=== PATIENT | female | born 1985 | race Caucasian/White ===

== ENCOUNTER 2018-04-14 16:44 | Emergency (ER) | payer OTHER ==
[~2018-04-14] VITALS: Ht 177.8 cm; Wt 86.2 kg
[~2018-04-14 16:44] MED LIST: BENTYL10 MG PO; CLINDAMYCIN HC300 MG PO; FLEXERIL10 MG PO; IBUPROFEN600 MG PO; NAPROXEN500 MG PO; NEURONTIN100 MG PO; NORCO 10-325 T1 EACH PO; NORCO 5-325 TA1 EACH PO; OXYCODONE HCL5 MG PO; PROVENTIL HFA6.7 GM INH; TRAMADOL HCL50 MG PO; VOLTAREN-XR100 MG PO; WELLBUTRIN XL150 MG PO; WELLBUTRIN XL300 MG PO
[2018-04-14] MEDS ORDERED: CYMBALTA30 MG PO (17:01)
[2018-04-14] MEDS ORDERED: KETOROLAC TROME10 MG PO (17:02)
== END 2018-04-14 18:30 | disposition home or self-care (01) ==
LOC: ED 16:44
DX: F17.200 Nicotine dependence, unspecified, uncomplicated (principal); Z88.2 Allergy status to sulfonamides; Z88.1 Allergy status to other antibiotic agents; Z88.8 Allergy status to other drugs, medicaments and biological substances
CPT/HCPCS: 73130; 99283

== ENCOUNTER 2018-08-17 05:27 | Emergency (ER) | payer OTHER ==
[~2018-08-17] VITALS: Ht 177.8 cm; Wt 77.1 kg
[~2018-08-17 05:27] MED LIST changes: +CYMBALTA30 MG PO; +IBUPROFEN800 MG PO; +KETOROLAC TROME10 MG PO; +ULTRAM50 MG PO
--- OUTSIDE RECORDS SUMMARY | 2018-08-17 05:32 | XMS ---
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 - 2 Visits in 30 Days CARE PROVIDERS KATHERINE CROSS Physician Hypoid Gear Tester 06/28/2018-Current PHONE: [phone] AILIN HURST [facility] 03/10/2016-Current PHONE: Unknown [facility] Current PAC PHONE: Unknown PCP_Unattributed Primary Care 03/10/2016-Current PHONE: Unknown Navarro Asher [facility] 03/10/2016-[facility] PHONE: [phone] AILIN HURST Primary Care 03/10/2016-[facility] PHONE: [phone] El has no Care Guidelines for this patient. Mindy VISIT COUNT (12 MO.) 5 JASPER Scott TOTAL 5 NOTE: Visits indicate total known visits. ED/UCC VISIT TRACKING (12 MO.) 08/17/2018 05:28 [facility] [place] TYPE: Emergency COMPLAINT: - SOB/SORE THROAT 08/03/2018 00:02 [facility] [place] TYPE: Emergency COMPLAINT: - R WRIST PAIN/NON INJURY DIAGNOSES: - Major depressive disorder, single episode, unspecified - Unspecified asthma, uncomplicated - Allergy status to other drugs, medicaments and biological substances status - Other custodial (current) drug therapy - Personal history of nicotine dependence - Pain in right wrist - Enthesopathy, unspecified - Allergy status to sulfonamides status 06/27/2018 18:06 [facility] [place] [place] TYPE: Emergency COMPLAINT: - VOMITING 06/02/2018 17:25 [facility] [place] TYPE: Emergency COMPLAINT: - POST OP PROBLEM DIAGNOSES: - 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 - Other acute postprocedural pain - Allergy status to other drugs, medicaments and biological substances status - Allergy status to sulfonamides status - Major depressive disorder, single episode, unspecified - Unspecified abdominal pain - Unspecified abdominal pain 04/14/2018 16:45 [facility] [place] [place] TYPE: Emergency COMPLAINT: - LT HAND INJURY DIAGNOSES: - Activity, walking, marching and hiking - Nicotine dependence, unspecified, uncomplicated - Allergy status to other antibiotic agents status - Allergy status to sulfonamides status - Allergy status to other drugs, medicaments and biological substances status - Pain in left wrist - Fall on same level from slipping, tripping and stumbling without subsequent striking against object, initial encounter - Abrasion of left hand, initial encounter INPATIENT VISIT TRACKING (12 MO.) 06/27/2018 18:[address] [facility] [place] TYPE: Medical Surgical COMPLAINT: - CHOLECYSTITIS DIAGNOSES: - Allergy status to other drugs, medicaments and biological substances status - Other ascites - Major depressive disorder, single episode, unspecified - Hypokalemia - Acute cholecystitis with chronic cholecystitis - Acquired absence of both cervix and uterus - Other custodial (current) drug therapy - Nausea with vomiting, unspecified - Unspecified viral hepatitis C without hepatic coma - Allergy status to analgesic agent status - Chronic viral hepatitis C - Other disorders of bilirubin metabolism - Allergy status to sulfonamides status - Personal history of nicotine dependence - Acute hepatitis C without hepatic coma [email or web address]
== END 2018-08-17 07:03 | disposition home or self-care (01) ==
LOC: ED 05:27
DX: J70.5 Respiratory conditions due to smoke inhalation (principal); F32.9 Major depressive disorder, single episode, unspecified; J45.909 Unspecified asthma, uncomplicated; Z86.19 Personal history of other infectious and parasitic diseases; F17.200 Nicotine dependence, unspecified, uncomplicated; Z90.710 Acquired absence of both cervix and uterus; Z88.0 Allergy status to penicillin; Z88.6 Allergy status to analgesic agent; Z88.8 Allergy status to other drugs, medicaments and biological substances; Z79.899 Other long term (current) drug therapy
CPT/HCPCS: 71046; 82375; 99284-25

== ENCOUNTER 2019-04-04 14:33 | Emergency (ER) | payer OTHER ==
[~2019-04-04] VITALS: Ht 177.8 cm; Wt 80.7 kg
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
== END 2019-04-04 15:01 | disposition home or self-care (01) ==
LOC: ED 14:33
DX: Z48.02 Encounter for removal of sutures (principal)

== ENCOUNTER 2019-04-09 12:03 | Emergency (ER) | payer OTHER ==
[~2019-04-09] VITALS: Ht 177.8 cm; Wt 72.6 kg
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
== END 2019-04-09 14:50 | disposition home or self-care (01) ==
LOC: ED 12:03
DX: S50.02XA Contusion of left elbow, initial encounter (principal); V59.9XXA Occupant (driver) (passenger) of pick-up truck or van injured in unspecified traffic accident, initial encounter; F32.9 Major depressive disorder, single episode, unspecified; F17.200 Nicotine dependence, unspecified, uncomplicated; Z88.2 Allergy status to sulfonamides; Z88.8 Allergy status to other drugs, medicaments and biological substances
CPT/HCPCS: 73080; 99283; 99406

== ENCOUNTER 2020-04-08 14:10 | Emergency (ER) | payer OTHER ==
[~2020-04-08] VITALS: Ht 175.3 cm; Wt 79.4 kg
--- OUTSIDE RECORDS SUMMARY | ~2020-04-08 | XMS | Encounter Summary ---
Demographics + + + | Address | General Delivery | | | [place] [address] | + + + | Home Phone | | + + + | Preferred Language | Unknown | + + + | Marital Status | Single | + + + | Jehovah'S Witness Affiliation | Unknown | + + + | Race | White | + + + | Ethnic Group | Not or | + + + Author + + + | Author | [facility] | | | and [place] | + + + | Organization | [facility] | | | and [place] | + + + | Address | Unknown | + + + | Phone | Unavailable | + + + Support + + +---------+ + | Name | Relationship | Address | Phone | + + +---------+ + | Christine aCbezas | ECON | Unknown | | + + +---------+ + Care Team Providers + +------+ + | Care Tire Changer Name | Role | Phone | + +------+ + | Neal Lutz DO | PCP | | + +------+ + Reason for Visit + + + | Reason | Comments | + + + | Procedure | EMG - BUE / BLE | + + + Encounter Details +--------+ + + + + | Date | Type | Department | Care Team | Description | +--------+ + + + + | 11/09/ | Procedure | [facility] | Alison Aranda | Numbness and | | 2018 | visit | [facility] | [address] | tingling | | | | CL[address] | [address] | | | | | [address], | [place] [address] | | | | | [place] [address] | [phone] | | | | | [phone] | | | +--------+ + + + + Social History + + + +--------+------+ | Tobacco Use | Types | Packs/Day | Years | Date | | | | | Used | | + + + +--------+------+ | Current Every Day | Cigarettes | | | | | Smoker | | | | | + + + +--------+------+ + +---+---+---+ | Smokeless Tobacco: | | | | | Never Used | | | | + +---+---+---+ + + | Comments: 1 pack/week | + + + + +---------+ + | Alcohol Use | Drinks/Week | oz/Week | Comments | + + +---------+ + | No | | | | + + +---------+ + + + + | Sex Assigned at | Date Recorded | | | | + + + | Not on file | | + + + documented as of this encounter Last Filed Vital Signs + + + + + | Vital Sign | Reading | Time Taken | Comments | + + + + + | Blood Pressure | 113/60 | 11/09/2017 12:58 PM | | | | | PDT | | + + + + + | Pulse | 90 | 11/09/2017 12:58 PM | | | | | PDT | | + + + + + | Temperature | - | - | | + + + + + | Respiratory Rate | 18 | 11/09/2017 12:58 PM | | | | | PDT | | + + + + + | Oxygen Saturation | 100% | 11/09/2017 12:58 PM | | | | | PDT | | + + + + + | Inhaled Oxygen | - | - | | | Concentration | | | | + + + + + | Weight | 84.1 kg (185 lb 6.5 | 11/09/2017 12:58 PM | | | | oz) | PDT | | + + + + + | Height | 175 cm (5' 8.9") | 11/09/2017 12:58 PM | | | | | PDT | | + + + + + | Body Mass Index | 27.46 | 11/09/2017 12:58 PM | | | | | PDT | | + + + + + documented in this encounter Progress Notes Alison Aranda MD - 11/09/2017 1:15 PM PDTEMG tolerated well. Results explained to patient. I feel that her extremity numbness and tingling are likely secondary to temporaril y nerve dysfunction from recurrent compression. As for her persistent thoracic pain, she will ask her PCP for a referral to pain management . This may be complex regional pain syndrome. Follow-up at the neurology clinic in 3 months with Evans AIKEN. documented in this encounter Procedure Notes Alison Aranda MD - 11/09/2017 1:15 PM PDTAssociated Order(s): EMGPre-Procedure Diag nose(s): Numbness and tinglingPlease see scanned report. documented in this encounter Plan of Treatment Not on filedocumented as of this encounter Procedures + +--------+ + + + | Procedure Name | Priori | Date/Time | Associated Diagnosis | Comments | | | ty | | | | + +--------+ + + + | EMG | Routin | 11/09/2017 | Numbness and | Results for this | | | e | 1:15 PM | tingling | procedure are in the | | | | PDT | | results section. | + +--------+ + + + | EMG | Routin | 11/09/2017 | Numbness and | Results for this | | | e | 1:15 PM | tingling | procedure are in the | | | | PDT | | results section. | + +--------+ + + + documented in this encounter Results EMG-RAUL/DESIREE (11/09/2017 1:15 PM PDT) + + + | Narrative | Performed At | + + + | Alison Aranda MD 11/09/2017 13:46 Please see scanned | | | report. | | + + + documented in this encounter Visit Diagnoses + + | Diagnosis | + + | Numbness and tingling Disturbance of skin sensation | + + documented in this encounter
--- OUTSIDE RECORDS SUMMARY | ~2020-04-08 | XMS | Encounter Summary ---
Demographics + + + | Address | General Delivery | | | [place] [address] | + + + | Home Phone | | + + + | Preferred Language | Unknown | + + + | Marital Status | Single | + + + | Mosque Affiliation | Unknown | + + + | Race | White | + + + | Ethnic Group | Not or | + + + Author + + + | Author | [facility] | | | and [place] | + + + | Organization | [facility] | | | and [place] | + + + | Address | Unknown | + + + | Phone | Unavailable | + + + Support + + +---------+ + | Name | Relationship | Address | Phone | + + +---------+ + | Christine Cabezas | ECON | Unknown | | + + +---------+ + Care Team Providers + +------+ + | Care Bath Mix Operator Name | Role | Phone | + +------+ + | Teresa Cordova | PCP | | | PA-C | | | + +------+ + Encounter Details +--------+ + + + + | Date | Type | Department | Care Team | Description | +--------+ + + + + | 03/25/ | Imaging | [facility] | Provider, | | | 2019 | Exam | [facility] | [address] | | | | | IMAGING [address] | [address] | | | | | [address] | [place] [address] | | | | | [place] [address] | | | | | | [phone] | | | +--------+ + + + [...] + + documented as of this encounter Plan of Treatment Not on filedocumented as of this encounter Procedures + +--------+ + + + | Procedure Name | Priori | Date/Time | Associated Diagnosis | Comments | | | ty | | | | + +--------+ + + + | CT MAXILLOFACIAL WO | Routin | 03/23/2019 | | Results for this | | CONTRAST | e | 12:00 AM | | procedure are in the | | | | PDT | | results section. | + +--------+ + + + documented in this encounter Results CT Maxillofacial wo Contrast (03/23/2019 12:00 AM PDT) + + | Specimen | + + | | + + + + + | Narrative | Performed At | + + + | External films for comparison only | [facility] | | | | | No results will be in the chart. | | + + + + +---------+ + + | Performing | Address | City/State/Zipcode | Phone Number | | Organization | | | | + +---------+ + + | [facility] | | | | + +---------+ + + documented in this encounter Visit Diagnoses Not on filedocumented in this encounter"
--- OUTSIDE RECORDS SUMMARY | ~2020-04-08 | XMS | Encounter Summary ---
Demographics + + + | Address | General Delivery | | | [place] [address] | + + + | Home Phone | | + + + | Preferred Language | Unknown | + + + | Marital Status | Single | + + + | Yazidism Affiliation | Unknown | + + + | Race | White | + + + | Ethnic Group | Not or | + + + Author + + + | Author | [facility] | | | and [place] | + + + | Organization | [facility] | | | and [...] Team Providers + +------+ + | Care Constitutional Law Professor Name | Role | Phone | + +------+ + PCP | Unavailable | + +------+ + Reason for Visit + +--------+ + | Reason | Onset | Comments | | | Date | | + +--------+ + | Results, Imaging | 06/08/ | | | | 2016 | | + +--------+ + Encounter Details +--------+ + + + + | Date | Type | Department | Care Team | Description | +--------+ + + + + | 06/08/ | Telephone | [facility] | Alison Aranda | Results, Imaging | | 2017 | | [facility] | [address] | | | | | CL[address] | [address] | | | | | [address], | [place] [address] | | | | | [place] [address] | [phone] | | | | | [phone] | | | +--------+ + + + + Social History + +-------+ +--------+------+ | Tobacco Use | Types | Packs/Day | Years | Date | | | | | Used | | + +-------+ +--------+------+ | Never Assessed | | | | | + +-------+ +--------+------+ + + + | Sex Assigned at | Date Recorded | | | | + + + | Not on file | | + + + documented as of this encounter Miscellaneous Notes Telephone Encounter - Alison Aranda MD - 06/08/2017 2:15 PM PDTCalled patient back but again no one answered so I left a message for her to call me back about her MRI resultsE lectronically signed by Alison Aranda MD at 06/08/2017 2:19 PM PDTTelephone Encounter - Ines Gutierrez - 06/08/2017 11:30 AM PDTPatient is asking for Dr. Aranda to call her destin k to go over her results. She states she missed a call yesterday regarding this. The best nu mber to reach her today is [phone] Thank you, InesElectronkrystal signed by Ines Gutierrez at 06/08/2017 11:33 AM PDTdocumented in this encounter Plan of Treatment Not on filedocumented as of this encounter Visit Diagnoses Not on filedocumented in this encounter"
--- OUTSIDE RECORDS SUMMARY | ~2020-04-08 | XMS | Encounter Summary ---
Demographics + + + | Address | General Delivery | | | [place] [address] | + + + | Home Phone | | + + + | Preferred Language | Unknown | + + + | Marital Status | Single | + + + | Rastafarian Affiliation | Unknown | + + + | Race | White | + + + | Ethnic Group | Not or | + + + Author + + + | Author | [facility] | | | and [place] | + + + | Organization | [facility] | | | and [...] Team Providers + +------+ + | Care Dog Beautician Name | Role | Phone | + +------+ + | Neal Lutz DO | PCP | | + +------+ + Reason for Visit + +--------+ + | Reason | Onset | Comments | | | Date | | + +--------+ + | Medication Related | 01/29/ | | | | 2017 | | + +--------+ + Encounter Details +--------+ + + + + | Date | Type | Department | Care Team | Description | +--------+ + + + + | 01/29/ | Telephone | [facility] | Shabbir, | Medication Related | | 2018 | | [facility] | Vitakennethneil, VISITOR INFORMATION ASSISTANT [address] | | | | | [address] | [address] [facility] [place], | | | | | [address], | [place] [address] | | | | | [place] [address] | [phone] | | | | | [phone] | | | +--------+ + + + [...] this encounter Miscellaneous Notes Telephone Encounter - Bree Carson CC CMA - 01/29/2018 4:39 PM PDTCalled pt confirm ed pharmacy, refaxed the script per patient. Bree Carson elephone Encounter - Payal Elise - 01/29/2018 4:32 PM PDTPt was in last wed and talked with Jerry and was supposed to have a prescription of Lyrica. She stated the pharmacy has not received it please advise.Nikolai rice signed by Payal Elise at 01/29/2018 4:35 PM PDTdocumented in this encounter Plan of Treatment Not on filedocumented as of this encounter Visit Diagnoses Not on filedocumented in this encounter"
--- OUTSIDE RECORDS SUMMARY | ~2020-04-08 | XMS | Encounter Summary ---
Demographics + + + | Address | General Delivery | | | [place] [address] | + + + | Home Phone | | + + + | Preferred Language | Unknown | + + + | Marital Status | Single | + + + | Restorationism Affiliation | Unknown | + + + | Race | White | + + + | Ethnic Group | Not or | + + + Author + + + | Author | [facility] | | | and [place] | + + + | Organization | [facility] | | | and [...] Team Providers + +------+ + | Care Flotation Operator Name | Role | Phone | + +------+ + | Teresa Cordova | PCP | | | PA-C | | | + +------+ + Encounter Details +--------+ + + + + | Date | Type | Department | Care Team | Description | +--------+ + + + + | 03/23/ | Ophth Exam | [facility] | Vincenzo Miller, | | | 2018 | | MED CTR PROVIDER | [address] | | | | | SURGICAL [address] | [place] [address] | | | | | [place], | [address] | | | | | [place] [address] | | | | | | [phone] | | | +--------+ + + + [...]
--- OUTSIDE RECORDS SUMMARY | ~2020-04-08 | XMS | Encounter Summary ---
Demographics + + + | Address | [address] | | | [place] [address] | + + + | Home Phone | | + + + | Preferred Language | Unknown | + + + | Marital Status | Single | + + + | Judaism Affiliation | DEC | + + + | Race | White | + + + | Ethnic Group | Not or | + + + Author + + + | Author | [facility] | + + + | Organization | [facility] | + + + | Address | Unknown | + + + | Phone | Unavailable | + + + Support + + +---------+ + | Name | Relationship | Address | Phone | + + +---------+ + | Jovan Cabezas | ECON | Unknown | | + + +---------+ + Care Team Providers + +------+ + | Care Electric Wheelchair Repairer Name | Role | Phone | + +------+ + | Neal Lutz DO | PCP | | + +------+ + Encounter Details +--------+ + + + + | Date | Type | Department | Care Team | Description | +--------+ + + + + | 06/01/ | Document-Sc | Dermatology at | Carolina Patel, | | | 2015 | anned | [facility] | ,PhD 1934 | | | | | Clinic [address] | [address] [place], [place] | | | | | [place], [place] | [address] | | | | | [address] | [phone] | | | | | [phone] | | | +--------+ + + + + Social History + +-------+ +--------+------+ | Tobacco Use | Types | Packs/Day | Years | Date | | | | | Used | | + +-------+ +--------+------+ | Former Smoker | | | | | + +-------+ +--------+------+ + + +---------+ + | Alcohol Use | Drinks/Week | oz/Week | Comments | + + +---------+ + | Not Asked | 0 Standard drinks | 0.0 | | | | or equivalent | | | + + +---------+ + + + + | Sex Assigned at | Date Recorded | | | | + + + | Not on file | | + + + documented as of this encounter Plan of Treatment Not on filedocumented as of this encounter Visit Diagnoses Not on filedocumented in this encounter"
--- OUTSIDE RECORDS SUMMARY | ~2020-04-08 | XMS | Encounter Summary ---
Demographics + + + | Address | General Delivery | | | [place] [address] | + + + | Home Phone | | + + + | Preferred Language | Unknown | + + + | Marital Status | Single | + + + | Pentecostal Affiliation | Unknown | + + + | Race | White | + + + | Ethnic Group | Not or | + + + Author + + + | Author | [facility] | | | and [place] | + + + | Organization | [facility] | | | [...] Team Providers + +------+ + | Care Optician Apprentice Name | Role | Phone | + +------+ + PCP | Unavailable | + +------+ + Encounter Details +--------+ + + + + | Date | Type | Department | Care Team | Description | +--------+ + + + + | 02/22/ | Hospital | [facility] | Shaun Abel | | | 2017 | Encounter | [facility] | [address] | | | | | CL[address] | [address] [place], [place] | | | | | [address] [place], | [address] | | | | | [place] [address] | | | | | | [phone] | | | +--------+ + + + [...]
--- OUTSIDE RECORDS SUMMARY | ~2020-04-08 | XMS | Encounter Summary ---
Demographics + + + | Address | General Delivery | | | [place] [address] | + + + | Home Phone | | + + + | Preferred Language | Unknown | + + + | Marital Status | Single | + + + | Caodaism Affiliation | Unknown | + + + | Race | White | + + + | Ethnic Group | Not or | + + + Author + + + | Author | [facility] | | | and [place] | + + + | Organization | [facility] | | | and [...] Team Providers + +------+ + | Care Cosmetologist Name | Role | Phone | + +------+ + | Neal Lutz DO | PCP | | + +------+ + Reason for Visit + + + | Reason | Comments | + + + | Follow-up | Throracic pain | + + + Encounter Details +--------+---------+ + + + | Date | Type | Department | Care Team | Description | +--------+---------+ + + + | 01/23/ | Office | [facility] | Shabbir, | Chronic left-sided | | 2018 | Visit | [facility] | Jerry, [address] | thoracic back pain | | | | CLIN[address] | [address] [place], | (Primary Dx); | | | | [address] [place], | [place] [address] | Numbness and | | | | [place] [address] | [phone] | tingling | | | | [phone] | | | +--------+---------+ + + + Social History + + [...] this encounter Last Filed Vital Signs + +---------+ + + | Vital Sign | Reading | Time Taken | Comments | + +---------+ + + | Blood Pressure | 110/72 | 01/23/2018 8:55 AM | | | | | PDT | | + +---------+ + + | Pulse | 89 | 01/23/2018 8:55 AM | | | | | PDT | | + +---------+ + + | Temperature | - | - | | + +---------+ + + | Respiratory Rate | 16 | 01/23/2018 8:55 AM | | | | | PDT | | + +---------+ + + | Oxygen Saturation | 99% | 01/23/2018 8:55 AM | | | | | PDT | | + +---------+ + + | Inhaled Oxygen | - | - | | | Concentration | | | | + +---------+ + + | Weight | - | - | | + +---------+ + + | Height | - | - | | + +---------+ + + | Body Mass Index | - | - | | + +---------+ + + documented in this encounter Patient Instructions Patient Instructions Jerry Shea, ATTILA - 01/23/2018 9:00 AM PDT Pregabalin capsules Brand Name: Brandi What is this medicine? PREGABALIN (pre VIMAL a [place]) is used to treat nerve pain from diabetes, shingles, spinal cord injury, and fibromyalgia. It is also used to control seizures in epilepsy. How should I use this medicine? Take this medicine by mouth with a glass of water. Follow the directions on the prescriptio n label. You can take this medicine with or without food. Take your doses at regular interva ls. Do not take your medicine more often than directed. Do not stop taking except on your do ctor's advice. A special MedGuide will be given to you by the pharmacist with each prescription and refill . Be sure to read this information carefully each time. Talk to your ship's pilot regarding the use of this medicine in children. Special care may be needed. What side effects may I notice from receiving this medicine? Side effects that you should report to your doctor or health landcare officer as soon as p ossible: allergic reactions like skin rash, itching or hives, swelling of the face, lips, or tong ue breathing problems changes in vision chest pain confusion jerking or unusual movements of any part of your body loss of memory muscle pain, tenderness, or weakness suicidal thoughts or other mood changes swelling of the ankles, feet, hands unusual bruising or bleeding Side effects that usually do not require medical attention (report to your doctor or health landcare officer if they continue or are bothersome): dizziness drowsiness dry mouth headache nausea tremors trouble sleeping weight gain What may interact with this medicine? alcohol certain medicines for blood pressure like captopril, enalapril, or lisinopril certain medicines for diabetes, like pioglitazone or rosiglitazone certain medicines for anxiety or sleep narcotic medicines for pain What if I miss a dose? If you miss a dose, take it as soon as you can. If it is almost time for your next dose, ta ke only that dose. Do not take double or extra doses. Where should I keep my medicine? Keep out of the reach of children. This medicine can be abused. Keep your medicine in a saf e place to protect it from theft. Do not share this medicine with anyone. Selling or giving away this medicine is dangerous and against the law. This medicine may cause accidental overdose and if it taken by other adults, children , or pets. Mix any unused medicine with a substance like cat litter or coffee grounds. Then throw the medicine away in a sealed container like a sealed bag or a coffee can with a lid. Do not use the medicine after the expiration date. Store at room temperature between 15 and 30 degrees C (59 and 86 degrees F). What should I tell my health care provider before I take this medicine? They need to know if you have any of these conditions: bleeding problems heart disease, including heart failure history of alcohol or drug abuse kidney disease suicidal thoughts, plans, or attempt; a previous suicide attempt by you or a family memb er an unusual or allergic reaction to pregabalin, gabapentin, other medicines, foods, dyes, or preservatives or trying to get or trying to conceive with your partner breast-feeding What should I watch for while using this medicine? Tell your doctor or healthcare professional if your symptoms do not start to get better or if they get worse. Visit your doctor or health landcare officer for regular checks on your progress. Do not stop taking except on your doctor's advice. You may develop a severe reacti on. Your doctor will tell you how much medicine to take. Wear a medical identification bracelet or chain if you are taking this medicine for seizure s, and carry a card that describes your disease and details of your medicine and dosage time s. You may get drowsy or dizzy. Do not drive, use machinery, or do anything that needs mental alertness until you know how this medicine affects you. Do not stand or sit up quickly, clarence cially if you are an older patient. This reduces the risk of dizzy or fainting spells. Alcoh ol may interfere with the effect of this medicine. Avoid alcoholic drinks. If you have a heart condition, like congestive heart failure, and notice that you are retai boo water and have swelling in your hands or feet, contact your health care provider chris benitez. The use of this medicine may increase the chance of suicidal thoughts or actions. Pay speci al attention to how you are responding while on this medicine. Any worsening of mood, or tho ughts of suicide or dying should be reported to your health landcare officer right away. This medicine has caused reduced sperm counts in some men. This may interfere with the abil ity to father a child. You should talk to your doctor or health landcare officer if you are concerned about your fertility. Women who become while using this medicine for seizures may enroll in the [facility] Antiepileptic Drug Registry by calling . This registry [facility] information about the safety of antiepileptic drug use during . NOTE:This sheet is a summary. It may not cover all possible information. If you have questi ons about this medicine, talk to your doctor, pharmacist, or health care provider. Copyright 2017 [employer] documented in this encounter Progress Notes Jerry Shea FNP - 01/23/2018 9:00 AM PDT Patient: Becky Peña Medical Record: [id number] Date of Services: 01/23/2018 Referring Doctor: Neal Lutz DO Chief Complaint: Chronic thoracic spine pain, complex regional pain syndrome, numbness and tingling History of Present Illness: The patient presents to the Neurology Clinic today for follow u p. The patient presents to the neurology clinic today for follow-up for her chronic left-sided thoracic pain possibly due to complex regional pain syndrome. The patient reports that her pain started after the removal of 2 abscesses in her left axilla. The area that she descri bes extends from the base of her skull down to her low back and across to her axilla. With an area of intense pain over the left scapula near the axillary area. She reports that her pain today as a 3 out of 10. The pain is intermittent and occurs about 4 times per day last ing 5-10 minutes for each episode. She reports that when this happens the pain is about an 8 out of 10. She had an MRI of the thoracic spine done January 11, 2017 which showed some mild degenerative changes of the thoracic spine, but does not explain her symptoms. She had an E MG done November 09, 2017 which showed no signs of neuropathy or radiculopathy. She had an MRI of the brain done June 06, 2017 which showed no acute processes and was essentially norm al. The patient also endorses intermittent left-sided numbness and tingling she reports ramiro t it affects the entire left side of her body but happens when she is either sitting down, o r when she is leaning over and put pressure on her left elbow. The patient has tried gabape ntin and Topamax but these medications were discontinued due to side effects. She is also u nable to take zonisamide due to a sulfa allergy. She had previously started taking Cymbalta 60 mg daily. She reports moderate relief from h er symptoms with this medication. However, she does believe that her pain has been worsenin g over the past several months. Her PCP left [place] and she has not reestablished with a new primary care provider. Therefore, a referral to a pain specialist has not yet been mad e. Patient Active Problem List Diagnosis Date Noted Numbness and tingling 10/18/2017 Chronic left-sided thoracic back pain 07/16/2017 Past Surgical History: Procedure Laterality Date SECTION TUBAL LIGATION Allergies Allergen Reactions Acetaminophen Other (See Comments) Sleepy Gabapentin Other (See Comments) nightmares Sulfa Antibiotics Rash Current Medications: clindamycin DULoxetine pregabalin VENTOLIN HFA Review of Symptoms: CONSTITUTIONAL: No weight loss, fever, chills, weakness or fatigue. HEENT: Eyes: No visual loss, blurred vision, double vision or yellow sclerae. Ears, Nose, Throat: No hearing loss, sneezing, congestion, runny nose or sore throat. SKIN: No rash or itching. CARDIOVASCULAR: No chest pain, chest pressure or chest discomfort. No palpitations or edema . RESPIRATORY: No shortness of breath, cough or sputum. GASTROINTESTINAL: No anorexia, nausea, vomiting or diarrhea. No abdominal pain or blood. GENITOURINARY: No burning on urination. NEUROLOGICAL: No headache, dizziness, syncope, paralysis, ataxia. No change in bowel or live dder control. + Numbness and tingling of left side MUSCULOSKELETAL: No muscle, joint pain or stiffness. + Back pain PSYCHIATRIC: No depression or anxiety. Neurological Examination: Vitals: 01/23/18 0855 BP: 110/72 Pulse: 89 Resp: 16 PainSc: 3 PainLoc: Back Mental status: The patient is alert, attentive, and oriented. Speech is clear and fluent with good repetit ion, comprehension, and naming. Cranial nerves: CN II: Visual loera are full to confrontation. Fundoscopic exam is normal with sharp discs and no vascular changes. Pupils are 4 mm and briskly reactive to light with accomodation. CN III, IV, : Gaze in conjugate. No blurred or double vision. No visual field cuts. EOM intact. CN V: Facial sensation is intact. CN VII: Face is symmetric with normal eye closure and smile. CN VII: Hearing is normal to rubbing fingers CN IX, X: Palate elevates symmetrically. Phonation is normal. CN XI: Head turning and shoulder shrug are intact CN XII: Tongue is midline with normal movements and no atrophy. Motor: There is no pronator drift of out-stretched arms. Muscle bulk and tone are normal. Strength is 5/5 bilaterally. Reflexes: Reflexes are 2+ and symmetric at the biceps, triceps, knees, and ankles. Sensory: Light touch, pinprick, position sense, and vibration sense are intact in fingers and toes. Coordination: Rapid alternating movements and fine finger movements are intact. There is no dysmetria on iwekdx-jd-tyll and wets-tvkp-ymum. There are no abnormal or extraneous movements. Romberg is absent. Gait/Stance: Posture is normal. Gait is steady with normal steps, base, arm swing, and turning. Heel and toe walking with mild difficulty. Clinical Impression: ICD-10-CM ICD-9-CM 1. Chronic left-sided thoracic back pain M54.6 724.1 pregabalin (LYRICA) 25 mg capsule G89.29 338.29 2. Numbness and tingling R20.0 782.0 pregabalin (LYRICA) 25 mg capsule R20.2 Plan: Chronic left-sided thoracic back pain: The patient is unable to take gabapentin and Topama x due to side effects, and she is unable to take zonisamide due to a sulfa allergy. The pat ient should try taking low-dose Lyrica to help with her pain and burning sensations. If terrence s medication is effective for her consider dose escalation in the future. I strongly encour aged the patient to reestablish care with a primary care provider so that she can get a refe rral to a pain specialist. The patient is agreeable to this plan of care. Plan to follow up with me in 4 months ATTILA Jeff documented in terrence s encounter Plan of Treatment Not on filedocumented as of this encounter Visit Diagnoses + + | Diagnosis | + + | Chronic left-sided thoracic back pain - Primary | + + | Numbness and tingling Disturbance of skin sensation | + + documented in this encounter"
--- OUTSIDE RECORDS SUMMARY | ~2020-04-08 | XMS | Encounter Summary ---
Demographics + + + | Address | General Delivery | | | [place] [address] | + + + | Home Phone | | + + + | Preferred Language | Unknown | + + + | Marital Status | Single | + + + | Episcopal Affiliation | Unknown | + + + | Race | White | + + + | Ethnic Group | Not or | + + + Author + + + | Author | [facility] | | | and [place] | + + + | Organization | [facility] | | [...] Team Providers + +------+ + | Care Ent Consultant Name | Role | Phone | + +------+ + | Neal Lutz DO | PCP | | + +------+ + Encounter Details +--------+ + + + + | Date | Type | Department | Care Team | Description | +--------+ + + + + | 02/11/ | Documentati | [facility] | [place] [place] | | | 2018 | on | H[facility] | [facility] | | | | | CLINIC [address] | | | | | | [address] [place], | | | | | | [place] [address] | | | | | | [phone] | | | +--------+ + + + [...] + + documented as of this encounter Progress Bree Hansen CC CMA - 02/11/2018 8:04 AM PDTPa done for Lyrica 25 Mg 01/31/18 and r esubmitted , was approved through 02/07/2018 through 02/07/19 per [facility]. Copy sent to ne an pt. Notified. Bree [place] Electronically signed by CLIFF Blanc CMA at 8:10 AM PDTdocumented in this encounter Plan of Treatment Not on filedocumented as of this encounter Visit Diagnoses Not on filedocumented in this encounter"
--- OUTSIDE RECORDS SUMMARY | ~2020-04-08 | XMS | Encounter Summary ---
Demographics + + + | Address | General Delivery | | | [place] [address] | + + + | Home Phone | | + + + | Preferred Language | Unknown | + + + | Marital Status | Single | + + + | Episcopalian Affiliation | Unknown | + + + | Race | White | + + + | Ethnic Group | Not or | + + + Author + + + | Author | [facility] | | | and [place] | + + + | Organization | [facility] | | | [...] Team Providers + +------+ + | Care Packing Supervisor Name | Role | Phone | + +------+ + | Neal Lutz DO | PCP | | + +------+ + Reason for Visit +--------+--------+ + | Reason | Onset | Comments | | | Date | | +--------+--------+ + | Other | 01/23/ | | | | 2018 | | +--------+--------+ + Encounter Details +--------+ + + + + | Date | Type | Department | Care Team | Description | +--------+ + + + + | 01/23/ | Telephone | [facility] | Jan Peacock MD | Other | | 2018 | | HOSPITAL [facility] | [address] | | | | | CLIN[address] | [place], [place] | | | | | [address] [place], | [address] | | | | | [place] [address] | | | | | | [phone] | | | +--------+ + + + [...] this encounter Miscellaneous Notes Telephone Encounter - Janey Pierce CC CMA - 01/23/2018 2:49 PM PDTSpoke to patient wh o understood that the MRI was accidentally ordered, but she does not need it because she had one done in May. P M PDTTelephone Encounter - Payal Elise - 01/23/2018 2:05 PM PDTPt stated at her apt she was told there were MRI orders for her. She stated she had one done in May. Does she nee d another please advise [phone] signed by Payal Elise at 8 2:07 PM PDTdocumented in this encounter Plan of Treatment Not on filedocumented as of this encounter Visit Diagnoses Not on filedocumented in this encounter"
--- OUTSIDE RECORDS SUMMARY | ~2020-04-08 | XMS | Encounter Summary ---
Demographics + + + | Address | [address] | | | [place] [address] | + + + | Home Phone | | + + + | Preferred Language | Unknown | + + + | Marital Status | Single | + + + | Caodaism Affiliation | DEC | + + + | Race | White | + + + | Ethnic Group | Not or | + + + Author + + + | Author | [facility] | + + + | Organization | [facility] | + + + | Address | Unknown | + + + | Phone | Unavailable | + + + Support + + +---------+ + | Name | Relationship | Address | Phone | + + +---------+ + | Jovan Cabezas | ECON | Unknown | | + + +---------+ + Care Team Providers + +------+ + | Care Lean Manufacturing Coordinator Name | Role | Phone | + +------+ + | BolivarNeal DO | PCP | | + +------+ + Reason for Visit + + + | Reason | Comments | + + + | Skin Lesion | Pt here today for abcesses all over her body since had surgery to | | | remove an abcess in bilateral armpits november 11. SHe states | | | they don't get as big as they used to. She uses hibiclens and | | | heat compresses. Pt is allergic to sulfates. | + + + Consultation (Routine) +--------+ + + + + + | Status | Reason | Specialty | Diagnoses / | Referred By | Referred To | | | | | Procedures | Contact | Contact | +--------+ + + + + + | Closed | Specialty | Dermatology | Diagnoses | Bolivar, | Amanda, | | | Services | | Cutaneous | DO Neal | Carolina Negrete, | | | Required | | abscess of | | ,PhD 1934 | | | | | limb, | [place], | E | | | | | unspecified | [place] | [place], | | | | | | [address] | [place] [address] | | | | | | Phone: | Phone: | | | | | | [phone] | [phone] | | | | | | Fax: | Fax: | | | | | | [phone] | [phone] | +--------+ + + + + + Encounter Details +--------+---------+ + + + | Date | Type | Department | Care Team | Description | +--------+---------+ + + + | 03/10/ | Office | Dermatology at | Carolina Patel, | Hidradenitis | | 2016 | Visit | [facility] | ,PhD 1934 | (Primary Dx) | | | | Clinic 1934 | [address] [place], [place] | | | | | [place], [place] | [address] | | | | | [address] | [phone] | | | | | [phone] | | | +--------+---------+ + + + Social History + +-------+ [...] + + + | Blood Pressure | - | - | | + + + + + | Pulse | - | - | | + + + + + | Temperature | - | - | | + + + + + | Respiratory Rate | - | - | | + + + + + | Oxygen Saturation | - | - | | + + + + + | Inhaled Oxygen | - | - | | | Concentration | | | | + + + + + | Weight | 86.3 kg (190 lb 3.2 | 03/10/2016 4:34 PM | | | | oz) | PDT | | + + + + + | Height | 170.2 cm (5' 7") | 03/10/2016 4:34 PM | | | | | PDT | | + + + + + | Body Mass Index | 29.79 | 03/10/2016 4:34 PM | | | | | PDT | | + + + + + documented in this encounter Patient Instructions Patient Instructions Becky Townsend MA - 03/10/2016 4:51 PM PDTSUNSCREEN APPLICATION AN D UV PROTECTION ? Exposure to ultraviolet radiation is the leading cause of premature aging, and skin cance rs including melanoma. ? The [place] [employer] (AAD) recommends you wear a wide-brimmed hat, sun gla sses and sun protective clothing. If you must be in the sun, it is recommended to use a Bro ad spectrum sunscreen (blocking both UVA and UVB) with a sun protection factor (SPF) of 30+ (even on cloudy days) and reapply every two hours, or after swimming or heavy perspiration. ? Sunscreens should be applied generously and evenly. One fluid ounce (or the equivalent o f a full shot glass) is the approximate amount of sunscreen required for each person each ti me sunscreen is applied. ? Sunscreens have an expiration date and once that date is reached, they may lose effective ness and should be discarded. ? Sunscreen is also important for blocking reflected UVR (Ultraviolet Radiation). Sand, con crete, snow, water, and other surfaces reflect UVR which has the same effect to your skin as direct sunlight. THE "ABCDE" RULE AND MELANOMA DETECTION Asymmetry - compare one half of the growth to the other half to determine if the halves are equal in size and appearance. Border - If the mole's border is irregular, notched, scalloped, or indistinct, it should be checked by a doctor. Color - Variation of color (e.g., more than one color or shade) within a mole is a suspicio us finding. Diameter - Any mole that has a diameter larger than a pencil's eraser should be checked by a doctor. Evolving - If a mole is changing in size, shape, color, elevation, surface texture or becom es itchy or painful, it should be checked by a doctor. Additional sunscreen and melanoma information is available at the following websites: http://www.[facility]/xd/health/services/dermatology/for-patients/health_info.cfm - [facility] Derm atology http://www.aad.org/public/sun/smart.html - AAD Website documented in this encounter Progress Notes Becky Townsend MA - 03/10/2016 4:51 PM PDT. Carolina Stevenson MD ,PhD - 03/10/2016 4:51 PM PDT DERMATOLOGY NEW PATIENT VISIT CHIEF COMPLAINT: Skin Lesion PCP: Neal Lutz DO HISTORY OF PRESENT ILLNESS: Becky Peña is a 30 y.o. female who presents for evaluation of Skin Lesion She is a n ew patient to dermatology, here for evaluation of axillary abscesses/cysts. She has had 3 o f these excised. She states that she continues to get the occasional new cystic papule on h er lower abdomen, or under her arms. She is also getting some irritation on the back of her scalp. She has no family history of a similar condition. She has experienced some large w eight loss and weight gain. She has been previously treated with oral clindamycin, topical Hibiclens which she continues to use. She has also previously taken doxycycline which she d id not tolerate. She describes a pins and needles feeling in her shoulder after her surgery. The patient's dermatology intake form was reviewed, signed, and dated. Her relevant PMH, F H, and includes: PAST MEDICAL HISTORY: No past medical history on file. PAST SURGICAL HISTORY: No past surgical history on file. FAMILY HISTORY: Family History: no one similarly affected SOCIAL HISTORY: Patient reports that she has quit smoking. She does not have any smokeless tobacco history on file. MEDICATIONS: Current Medication List Not on File ALLERGIES: -- Sulfa (Sulfonamide Antibiotics) -- Rash REVIEW OF SYSTEMS: Please see HPI and PMH. In addition, she denies fever, chills, sweats, weight loss or loss of appetite, and has no further skin complaints. PHYSICAL EXAMINATION: Ht 1.702 m (5' 7") | Wt 86.274 kg (190 lb 3.2 oz) | BMI 29.78 kg/(m^2) Well-developed, well-nourished female in no acute distress. Awake, alert and oriented. Pl easant and cooperative mood. A skin examination was performed including the scalp, face, eyelids, ears, lips, neck, ches t, back, abdomen, buttocks, bilateral arms and legs, bilateral hands and feet, and nails. F indings were within normal limits except for the following: --3 linear pink well healed excision sites in the axilla --a few small follicular pink papules under the arms and on the posterior scalp. Small lesi ons are by normal skin. --a few angular scars on the abdomen and thighs ASSESSMENT AND PLAN: Hidradenitis (primary encounter diagnosis) aka acne inversa Comment: mild Brenner stage I disease - single lesions with no sinus tracts or confluence of lesions. Plan: We discussed the chronic nature of this condition. Unfortunately there are no curati ve treatments. Medications are aimed at decreasing the frequency of lesions and making them more tolerable. For moderate to severe disease there are some treatment options including isotretinoin or Humira. At this time she does not require qualify for these medications. --The mainstay of treatment is oral anti-inflammatory antibiotics like doxycycline, unfortu nately she cannot tolerate these. --We should start topical clindamycin lotion 1-2 times daily to help decrease the frequency of new lesions --Recommended that she start zinc supplements, 50 mg daily. This has been shown to have so me anti-inflammatory effect and improvement of skin. --Continue Hibiclens washes 3 times weekly --We discussed that individual new lesions can be treated with intralesional Kenalog, 10 mg /mL 0.2 cc. Often this can prevent the subsequent inflammation and need for excision. --We discussed that her pins and needles feeling may be from small cutaneous nerve damage o r a pinched nerve, there is no specific therapy. This is a similar condition to notalgia pa resthetica. Some patients have improvement with acupuncture, massage, or topical counter-irr itants like Sarna or Icy hot. Opioids are generally not effective. RETURN VISIT: Return if symptoms worsen or fail to improve. Refer back as needed. Carolina Patel MD, PhD Brass Cleaner Department of Dermatology [facility] 03/10/2016 documented in th is encounter Plan of Treatment Not on filedocumented as of this encounter Visit Diagnoses + + | Diagnosis | + + | Hidradenitis - Primary | + + documented in this encounter
--- OUTSIDE RECORDS SUMMARY | ~2020-04-08 | XMS | Encounter Summary ---
Demographics + + + | Address | General Delivery | | | [place] [address] | + + + | Home Phone | | + + + | Preferred Language | Unknown | + + + | Marital Status | Single | + + + | Holiness Affiliation | Unknown | + + + | Race | White | + + + | Ethnic Group | Not or | + + + Author + + + | Author | [facility] | | | and [place] | + + + | Organization | [facility] | | | and [...] Team Providers + +------+ + | Care Dice Dealer Name | Role | Phone | + +------+ + | Neal Lutz DO | PCP | | + +------+ + Reason for Visit + + + | Reason | Comments | + + + | Back Pain | | + + + Encounter Details +--------+---------+ + + + | Date | Type | Department | Care Team | Description | +--------+---------+ + + + | 10/18/ | Office | [facility] | Manoj, Alison | Chronic left-sided | | 2018 | Visit | [facility] | [facility] [address] | thoracic back pain | | | | CL[facility] [address] | [place] | (Primary Dx); | | | | DR [address] [place], | [place] [address] | Numbness and | | | | [place] [address] | [phone] | tingling | | | | [phone] | | | +--------+---------+ + + + [...] + + + | Blood Pressure | 120/71 | 10/18/2017 1:46 PM | | | | | PST | | + + + + + | Pulse | 90 | 10/18/2017 1:46 PM | | | | | PST | | + + + + + | Temperature | - | - | | + + + + + | Respiratory Rate | 18 | 10/18/2017 1:46 PM | | | | | PST | | + + + + + | Oxygen Saturation | 100% | 10/18/2017 1:46 PM | | | | | PST | | + + + + + | Inhaled Oxygen | - | - | | | Concentration | | | | + + + + + | Weight | 84.1 kg (185 lb 4.8 | 10/18/2017 1:46 PM | | | | oz) | PST | | + + + + + | Height | 175.3 cm (5' 9") | 10/18/2017 1:46 PM | | | | | PST | | + + + + + | Body Mass Index | 27.36 | 10/18/2017 1:46 PM | | | | | PST | | + + + + + documented in this encounter Patient Instructions Patient Instructions Alison Aranda MD - 10/18/2017 2:08 PM PSTYou have the followin g tests/procedures ordered. At [facility] Neurology Clinic Electromyography (EMG) study with Dr. Aranda Medication Instructions: Increase Cymbalta to 60 mg daily *Any questions, please call Dr. Aranda's office at Patient advised of their right to have diagnostic testing, health care treatment, and/or se rvices at a facility other than [facility]. Having EMG and NCS Tests You will be having electromyography (EMG) and nerve conduction studies (NCS) to measure mus rudy and nerve function. In most cases, both tests are done. NCS is most often done first. Yo u will be asked to lie on an exam table with a blanket over you. You may have one or both of the following: Nerve conduction study (NCS) During NCS, mild electrical currents are used to test how fast impulses move along your ner ves. The healthcare provider will put small metal disks (electrodes) on your skin on the are a of your body being tested. This will be done using water-based gel or paste. A doctor or t echnologist will apply mild electrical currents to your skin. Your muscles will twitch, but the test won t harm you. Currents are usuallyapplied to the same area several times. Usu ally the intensity of the electrical stimulation is increased on each body part. Despite ceasar e increasing discomfort that varies from person to person, the electrical shock is not dange roger. The test may continue on other parts of your body unless the reason for doing the test is limited to a small part of the body. Electromyography (EMG) Most of the electrodes will be removed for EMG. The doctor will clean the area being tested with alcohol. A very fine needle will be put into the muscles in this region. When the need le is inserted, you may feel as if your skin is being pinched. Try to relax and do as instru cted, since you will be asked to relax and contract the muscle being tested. Following instr uctions will allow your doctor to interpret the test results. Let the doctor know For your safety and for the success of your test, tell the doctor if you: Have any bleeding problems. Take blood thinners (anticoagulants) or other medications, including aspirin. Have any immune system problems. Have had neck or back surgery. You may also be asked questions about your overall health. Before the test Prepare for your test as instructed. Shower or bathe, but don't use powder, oil, or lotion. Your skin should be clean and free of excess oil. Wear loose clothes. But know that you may be asked to change into a hospital gown. The entire test will take about 60 minutes. Be logan e to allow extra time to check in. After your test Before you leave, all electrodes will be removed. You can then get right back to your makayla l routine. If you feel tired or have some discomfort, take it easy. If you were told to stop taking any medicines for your test, ask when you can start taking them again. Your doctor w rashel let you know when your test results are ready. Date Last Reviewed: 04/24/[id number] [employer]. [address] [place] [address]. All righ ts reserved. This information is not intended as a substitute for professional medical care. Always follow your healthcare professional's instructions. documented in this encounter Progress Notes Alison Aranda MD - 10/18/2017 1:45 PM PST Patient: Becky Peña Medical Record: [id number] Date of Services: 10/18/2017 Referring Doctor: Neal Lutz Chief Complaint Patient presents with Back Pain HISTORY OF PRESENT ILLNESS: This is a follow-up on a 32-year-old female who comes back to the neurology clinic morganin g her left-sided posterior thoracic pain. She was last seen by me on 06/01/2017. Following that visit, she had MRIs of the brain and cervical spine as she was complaining that the pa in was moving to the right side. Both tests were unremarkable. At that time, she was also complaining of numbness and tingling in her hands and left foot. I took her off Topamax yuriy ping that it was causing her paresthesias. She is completely off the medication but continu es to have the symptoms. The pain over her thoracic region has improved but is not replaced by itching. She is currently on Cymbalta 30 mg daily. She thinks that this help her pain. REVIEW OF SYSTEMS: General: No fever HEENT: Positive for epistaxis and sneezing Cardiovascular: Positive for shortness of breath and dizziness Respiratory: No cough Gastrointestinal: No vomiting Musculoskeletal: Positive for joint pains and stiffness, low back pain, muscle cramps, musc le aches Skin: Positive for itching Hematologic: Positive for bruising Neurologic: Positive for dizziness Psychiatric: Positive for depression Genitourinary: No incontinence PAST MEDICAL HISTORY: Past Medical History: Diagnosis Date Bronchitis Depression Hidradenitis suppurativa Neuropathy (HCC) PAST SURGICAL HISTORY: Past Surgical History: Procedure Laterality Date SECTION TUBAL LIGATION MEDICATIONS: Current Outpatient Prescriptions Medication Sig Dispense Refill clindamycin (CLEOCIN T) 1 % lotion DULoxetine (CYMBALTA) [address] capsule Take 1 capsule by mouth Daily. 30 capsule 5 VENTOLIN HFA 108 (90 Base) MCG/ACT inhaler No current facility-administered medications for this visit. ALLERGIES: Allergies Allergen Reactions Acetaminophen Other (See Comments) Sleepy Gabapentin Other (See Comments) Sulfa Antibiotics Rash Social History Social History Marital status: Single Spouse name: N/A Number of children: N/A Years of education: N/A Occupational History Not on file. Social History Main Topics Smoking status: Current Every Day Smoker Types: Cigarettes Smokeless tobacco: Never Used Comment: 1 pack/week Alcohol use No Drug use: No Sexual activity: Not on file Other Topics Concern Not on file Social History Narrative No narrative on file Family History Problem Relation Age of Onset Stroke Mother No Known Problems Father PHYSICAL EXAMINATION: BP 120/71 | Pulse 90 | Resp 18 | Ht 1.753 m (5' 9") | Wt 84.1 kg (185 lb 4.8 oz) | SpO 2 100% | BMI 27.36 kg/m Neck is supple. Lungs are clear. Heart sounds are within normal limits. Abdomen is soft and non-tender, There is no extremity cyanosis or edema. NEUROLOGIC EXAMINATION: MENTAL STATUS: The patient is awake, alert, and oriented to time, place, and person. Spee ch is fluent. Memory, attention, comprehension, and general fund of knowledge are intact. CRANIAL NERVES: Funduscopy revealed distinct disc margins. There are no exudates or hemor rhages noted. Pupils are 3-4 mm, equal and reactive to light and accommodation. Extraocular muscle movements are intact. There are no visual field cuts. There is no nystagmus. There is no facial asymmetry. Facial sensation is intact. Palate elevates symmetrically. Streng th in the trapezius and sternocleidomastoid muscles is normal. Tongue is midline on protrusi on. MOTOR EXAMINATION: Strength is 5/5 throughout. Tone is normal. SENSORY EXAMINATION: diminished vibration in the distal left lower extremity DEEP TENDON REFLEXES: 2+ except for the ankle jerks which are 1+ PLANTAR RESPONSES: Downgoing bilaterally GAIT: Gait and station are normal. ROM versus is negative CEREBELLAR EXAMINATION: There is no dysmetria on [id number] test. Miscellaneous: There are no lesions noted over the left dorsal thoracic region IMPRESSION: 1. Chronic left thoracic pain which may be secondary to complex regional pain syndrome as it started after excision of a sweat gland in her axillary region 2. Hand and foot numbness and tingling PLAN AND RECOMMENDATIONS: I will now increase the patient's Cymbalta dose to 60 mg daily. This may help her paresthe guero as well. She is being scheduled for an EMG examination of the upper and lower extremities. If we fi nd a neuropathy, then we will proceed with a workup. Thank you for the opportunity to participate in the care of this patient. Alison Aranda MD10/18/201714:09 Electronically signed This note was transcribed using voice recognition software. There may be speech recognitio n errors which escaped detection during review. documented in thi s encounter Plan of Treatment Not on filedocumented as of this encounter Results EMG-BUE/BLE (11/09/2017 1:15 PM PDT) + + + [...]
--- OUTSIDE RECORDS SUMMARY | ~2020-04-08 | XMS | Clinical Summary ---
Demographics + + + | Address | [address] | | | [place] [address] | + + + | Home Phone | | + + + | Preferred Language | Unknown | + + + | Marital Status | Single | + + + | Yarsanism Affiliation | DEC | + + + | Race | White | + + + | Ethnic Group | Not or | + + + Author + + + | Author | [facility] | + + + | Organization | [facility] | + + + | Address | Unknown | + + + | Phone | Unavailable | + + + Support + + +---------+ + | Name | Relationship | Address | Phone | + + +---------+ + | Jovan Cabezas | ECON | Unknown | | + + +---------+ + Care Team Providers + +------+ + | Care Director Of Teaching And Learning Name | Role | Phone | + +------+ + | Neal Lutz DO | PCP | | + +------+ + Source Comments DW[facility]NE is fully live on both [facility] Ambulatory and [facility] InPatient.[facility] Allergies + + + + + + | Active Allergy | Reactions | Severity | Noted | Comments | | | | | Date | | + + + + + + | Sulfa (Sulfonamide | Rash | | 03/10/20 | | | Antibiotics) | | | 16 | | + + + + + + Medications + + + +---------+------+------+-------+ | Medication | Sig | Dispensed | Refills | Star | End | Statu | | | | | | t | Date | s | | | | | | Date | | | + + + +---------+------+------+-------+ | VENTOLIN HFA 90 | | | 0 | 06/0 | | Activ | | mcg/actuation | | | | 9/20 | | e | | inhalation HFA | | | | 16 | | | | aerosol inhaler | | | | | | | + + + +---------+------+------+-------+ | cyclobenzaprine 10 | | | 0 | 05/1 | | Activ | | mg oral tablet | | | | 9/20 | | e | | | | | | 16 | | | + + + +---------+------+------+-------+ | diclofenac sodium | | | 0 | 07/1 | | Activ | | EC 75 mg oral | | | | 3/20 | | e | | tablet,delayed | | | | 16 | | | | release (DR/EC) | | | | | | | + + + +---------+------+------+-------+ | dicyclomine 10 mg | | | 0 | 07/1 | | Activ | | oral capsule | | | | 1/20 | | e | | | | | | 16 | | | + + + +---------+------+------+-------+ | mupirocin 2 % | | | 0 | 06/0 | | Activ | | topical ointment | | | | 9/20 | | e | | | | | | 16 | | | + + + +---------+------+------+-------+ | traMADol 50 mg | | | 0 | 05/1 | | Activ | | oral tablet | | | | 9/20 | | e | | | | | | 16 | | | + + + +---------+------+------+-------+ | CLINDAMYCIN 1 % | APPLY LOTION | 60 mL | 11 | 12/1 | | Activ | | topical lotion | TOPICALLY TO | | | 820 | | e | | | AFFECTED AREA TWICE | | | 17 | | | | | DAILY | | | | | | + + + +---------+------+------+-------+ Active Problems Not on file Social History + +-------+ +--------+------+ | Tobacco [...] on file | | + + + Last Filed Vital Signs + + + [...] | | + + + + + Plan of Treatment + + +-------+ + | Health Maintenance | Due Date | Last | Comments | | | | Done | | + + +-------+ + | Influenza (Flu) | | | | | vaccination (#1) | 9 | | | + + +-------+ + | Pneumococcal | Aged Out | | No longer eligible based on patient's age | | vaccination | | | to complete this topic | + + +-------+ + Results Not on filefrom Last 3 Months Insurance + +--------+ +--------+-------+---------+--------+ | Payer | Benefi | Subscriber | Effect | Phone | Address | Type | | | t Plan | ID | joshua | | | | | | / | | Dates | | | | | | Group | | | | | | + +--------+ +--------+-------+---------+--------+ | F[employer] MEDICAID | FASHION PATTERN[employer]KER | [id number] | Effect | | | Medica | | | EASTER | | joshua | | | id | | | [place] | | for | | | | | | | | all | | | | | | | | dates | | | | + +--------+ +--------+-------+---------+--------+ + +--------+ +--------+ + + | Guarantor Name | Accoun | Relation to | Date | Phone | Billing Address | | | t Type | Patient | of | | | | | | | | | | + +--------+ +--------+ + + | Becky Peña | Person | Self [birth year] | [address] | | | al/Fam | | 1986 | [phone] | [place] [address] | | | precious | | | 2 (Home) | | + +--------+ +--------+ + +
--- OUTSIDE RECORDS SUMMARY | ~2020-04-08 | XMS | Encounter Summary ---
Demographics + + + | Address | General Delivery | | | [place] [address] | + + + | Home Phone | | + + + | Preferred Language | Unknown | + + + | Marital Status | Single | + + + | Mandaeism Affiliation | Unknown | + + + [...] Team Providers + +------+ + | Care Fork Truck Driver Name | Role | Phone | + +------+ + PCP | Unavailable | + +------+ + Reason for Visit + +--------+ + | Reason | Onset | Comments | | | Date | | + +--------+ + | Results, Imaging | 06/11/ | returning call | | | 2017 | | + +--------+ + Encounter Details +--------+ + + + + | Date | Type | Department | Care Team | Description | +--------+ + + + + | 06/11/ | Telephone | [facility] | Alison Aranda | Results, Imaging | | 2017 | | [facility] | [facility] [address] | (returning call) | | | | [facility] | [address] | | | | | [address], | [place] [address] | | | | | [place] [address] | [phone] | | | | | [phone] | | | +--------+ + + + [...] Telephone Encounter - Alison Aranda MD - 06/12/2017 7:31 AM PDTSpoke with hardik saravia nd went over her MRI results with her. I also recommended a pain management evaluation but she wants to see if Cymbalta works for her first. elephone Encounter - Ines Gutierrez - 06/11/2017 3:03 PM P DTPatient called stating she missed a call from regarding going over some test res ults. The best contact number to reach her today is [phone]. She states the best time t o reach her today is from 4:00pm-5:00pm. Thank you, Ines documented in this encounter Plan of Treatment Not on filedocumented as of this encounter Visit Diagnoses Not on filedocumented in this encounter"
--- OUTSIDE RECORDS SUMMARY | ~2020-04-08 | XMS | Clinical Summary ---
Demographics + + + | Address | General Delivery | | | [place] [address] | + + + | Home Phone | | + + + | Preferred Language | Unknown | + + + | Marital Status | Single | + + + | Restoration Affiliation | Unknown | + + + | Race | White | + + + | Ethnic Group | Not or | + + + Author + + + | Author | [facility] | | | and [place] | + + + | Organization | [facility] | | | and [...] Team Providers + +------+ + | Care Belt Puncher Name | Role | Phone | + +------+ + | Teresa Cordova | PCP | | | PA-C | | | + +------+ + Allergies + + + + + + | Active Allergy | Reactions | Severity | Noted | Comments | | | | | Date | | + + + + + + | Acetaminophen | Other (See Comments) | | | Sleepy | + + + + + + | Gabapentin | Other (See Comments) | | | nightmares | + + + + + + | Sulfa Antibiotics | Rash | Low | 07/16/20 | | | | | | 17 | | + + + + + + Medications + +-----+ +---------+------+------+-------+ | Medication | Sig | Dispensed | Refills | Star | End | Statu | | | | | | t | Date | s | | | | | | Date | | | + +-----+ +---------+------+------+-------+ | VENTOLIN HFA 108 | | | 0 | 11/2 | | Activ | | (90 Base) MCG/ACT | | | | 0/20 | | e | | inhaler | | | | 17 | | | + +-----+ +---------+------+------+-------+ | clindamycin | | | 0 | 11/2 | | Activ | | (CLEOCIN T) 1 % | | | | 0/20 | | e | | lotion | | | | 17 | | | + +-----+ +---------+------+------+-------+ Active Problems + + + | Problem | Noted Date | + + + | Numbness and tingling | 10/18/2017 | + + + | Chronic left-sided thoracic back pain | 07/16/2017 | + + + Immunizations + + + + | Name | Administration Dates | Next Due | + + + + | TDAP, (ADOL/ADULT) | 03/23/2019 () | | + + + + Family History + + +------+ + | Medical History | Relation | Name | Comments | + + +------+ + | No known problems | Father | | | + + +------+ + | Stroke | Mother | | | + + +------+ + + +------+--------+ + | Relation | Name | Status | Comments | + +------+--------+ + | Father | | Alive | | + +------+--------+ + | Mother | | Alive | | + +------+--------+ + Social History + + + +--------+------+ [...] + + + | Blood Pressure | 115/68 | 03/23/2019 2:25 PM | | | | | PDT | | + + + + + | Pulse | 61 | 03/23/2019 2:25 PM | | | | | PDT | | + + + + + | Temperature | 36.7 C (98 F) | 03/23/2019 2:25 PM | | | | | PDT | | + + + + + | Respiratory Rate | 18 | 03/23/2019 2:25 PM | | | | | PDT | | + + + + + | Oxygen Saturation | 100% | 03/23/2019 2:25 PM | | | | | PDT | | + + + + + | Inhaled Oxygen | - | - | | | Concentration | | | | + + + + + | Weight | 72.6 kg (160 lb) | 03/23/2019 2:25 PM | | | | | PDT | | + + + + + | Height | 177.8 cm (5' 10") | 03/23/2019 2:25 PM | | | | | PDT | | + + + + + | Body Mass Index | 22.96 | 03/23/2019 2:25 PM | | | | | PDT | | + + + + + Plan of Treatment + + + + + | Health Maintenance | Due Date | Last | Comments | | | | Done | | + + + + + | Hepatitis C | | | | | Screening | 6 | | | + + + + + | Vaccine: | | | | | Pneumococcal 19-64 | 2 | | | | (1 of 1 - PPSV23) | | | | + + + + + | Vaccine: | | 09/02/19 | | | Dtap/Tdap/Td (6 - | 7 | 03, | | | Tdap) | | 12/10/18 | | | | | 91, | | | | | 08/11/19 | | | | | 87, | | | | | Addition | | | | | al | | | | | history | | | | | exists | | + + + + + | Cervical Cancer | | | | | Screening (Pap) | 6 | | | + + + + + | Vaccine: Influenza | | | | | (#1) | 0 | | | + + + + + Results Not on filefrom Last 3 Months Insurance + +--------+ +--------+ +---------+--------+ | Payer | Benefi | Subscriber | Effect | Phone | Address | Type | | | t Plan | ID | joshua | | | | | | / | | Dates | | | | | | Group | | | | | | + +--------+ +--------+ +---------+--------+ | [employer] | [employer] | [id number] | 08/13/19 | [phone] | | Medica | | MEDICAID HMO | HEALTH | | 17-Pre | 1 | | id | | | MDCD | | sent | | | | | | [place] | | | | | | + +--------+ +--------+ +---------+--------+ | [employer] | [employer] | [id number] | | [phone] | | Medica | | MEDICAID HMO | HEALTH | | 019-Pr | 1 | | id | | | MDCD | | esent | | | | | | [place] | | | | | | + +--------+ +--------+ +---------+--------+ + +--------+ +--------+ + + | Guarantor Name | Accoun | Relation to | Date | Phone | Billing Address | | | t Type | Patient | of | | | | | | | | | | + +--------+ +--------+ + + | Becky Peña | Person | Self [birth year] | General Delivery | | | al/Fam | | 1985 | [phone] | [place] [address] | | | precious | | | 9 (Home) | | + +--------+ +--------+ + + | Becky Peña | VOC | Self | [birth year] | | General Delivery | | | | | 1985 | [phone] | [place] [address] | | | | | | 9 (Home) | | + +--------+ +--------+ + + | Becky Peña | Person | Self | [birth year] | | General Delivery | | | al/Fam | | 1985 | [phone] | [place] [address] | | | precious | | | 9 (Home) | | + +--------+ +--------+ + + Advance Directives + + + + + | Type | Date Recorded | Patient | Explanation | | | | Guide Dog Trainer | | + + + + + | Power of | | | | | Screwdown Operator | | | | + + + + + | Advance | | | | | Directive | | | | + + + + +
--- OUTSIDE RECORDS SUMMARY | ~2020-04-08 | XMS | Encounter Summary ---
Demographics + + + | Address | General Delivery | | | [place] [address] | + + + | Home Phone | | + + + | Preferred Language | Unknown | + + + | Marital Status | Single | + + + | Anabaptist Affiliation | Unknown | + + + | Race | White | + + + | Ethnic Group | Not or | + + + Author + + + | Author | [facility] | | | and [place] | + + + | Organization | [facility] | | [...] Team Providers + +------+ + | Care Curbstone Setter Name | Role | Phone | + +------+ + PCP | Unavailable | + +------+ + Reason for Referral Diagnostic/Screening (Routine) +--------+--------+ + + + + | Status | Reason | Specialty | Diagnoses / | Referred By | Referred To | | | | | Procedures | Contact | Contact | +--------+--------+ + + + + | Closed | | Radiology | Diagnoses | Manoj, | | | | | | Dizziness | Alison Iniguez, | | | | | | Procedures | MD [address] | | | | | | MRI Brain w | St [place] | | | | | | wo Contrast | [place] | | | | | | | [address] | | | | | | | Phone: | | | | | | | [phone] | | | | | | | Fax: | | | | | | | [phone] | | +--------+--------+ + + + + Encounter Details +--------+ + + + + | Date | Type | Department | Care Team | Description | +--------+ + + + + | 06/05/ | Orders Only | [facility] | Alison Aranda | Dizziness (Primary | | 2017 | | [facility]OSPITAL [facility] | [address] | Dx) | | | | CLIN[address] | [address] | | | | | [address], | [place] [address] | | | | | [place] [address] | [phone] | | | | | [phone] | | | +--------+ + + + [...] as of this encounter Plan of Treatment + +---------+--------+ + + | Name | Type | Priori | Associated Diagnoses | Order Schedule | | | | ty | | | + +---------+--------+ + + | MRI Brain w wo | Imaging | Routin | Dizziness | Expected: | | Contrast | | e | | 06/05/2017, Expires: | | | | | | 06/05/2018 | + +---------+--------+ + + documented as of this encounter Visit Diagnoses + + | Diagnosis | + + | Dizziness - Primary Dizziness and giddiness | + + documented in this encounter"
--- OUTSIDE RECORDS SUMMARY | ~2020-04-08 | XMS | Encounter Summary ---
Demographics + + + | Address | General Delivery | | | [place] [address] | + + + | Home Phone | | + + + | Preferred Language | Unknown | + + + | Marital Status | Single | + + + | Hoahaoism Affiliation | Unknown | + + + | Race | White | + + + | Ethnic Group | Not or | + + + Author + + + | Author | [facility] | | | and [place] | + + + | Organization | [facility] | | [...] Team Providers + +------+ + | Care Permit Review Assistant Name | Role | Phone | + +------+ + | Neal Lutz DO | PCP | | + +------+ + Reason for Visit + + + | Reason | Comments | + + + | Medication Refill | | + + + Encounter Details +--------+--------+ + + + | Date | Type | Department | Care Team | Description | +--------+--------+ + + + | 10/03/ | Refill | [facility] | Alison Aranda | Medication Refill | | 2019 | | [facility] | [address] | | | | | CL[address] | [address] | | | | | [address], | [place] [address] | | | | | [place] [address] | [phone] | | | | | [phone] | | | +--------+--------+ + + + Social History + + [...] this encounter Miscellaneous Notes Telephone Encounter - Tayler Matthew CC CMA - 10/04/2018 7:58 AM PSTPlease call pt an d let her know that she needs a f/u before provider will fill her Rx. CLIFF Norton CMA elephone [place] untaaron - Tayler Matthew CC CMA - 10/03/2018 6:08 PM PSTRx -Duloxetine 60 mg , Last fill- 10/18/17, #30, 5-RF Last OV- 01/23/18 with Karyanne Next OV- none Last labs- No results found for: CREA, BUN, NA, K, CL, CO2 documented in this encounter Plan of Treatment Not on filedocumented as of this encounter Visit Diagnoses Not on filedocumented in this encounter"
--- OUTSIDE RECORDS SUMMARY | ~2020-04-08 | XMS | Encounter Summary ---
Demographics + + + | Address | [address] | | | [place] [address] | + + + | Home Phone [...] Author + + + | Author | [facility] | + + + | Organization | [facility] | + + + | Address | Unknown | + + + | Phone | Unavailable | + + + Support + + +---------+ + | Name | Relationship | Address | Phone | + + +---------+ + | Jovan Cabezas | ECON | Unknown | | + + +---------+ + Care Team Providers + +------+ + | Care Harbormaster Name | Role | Phone | + +------+ + | Neal Lutz DO | PCP | | + +------+ + Reason for Visit + + + | Reason | Comments | + + + | Refill Request | | + + + Encounter Details +--------+--------+ + + + | Date | Type | Department | Care Team | Description | +--------+--------+ + + + | 01/25/ | Refill | Dermatology at | [facility], | Refill Request | | 2017 | | [facility] | ,PhD 1934 | | | | | [address] [place], [place] | | | | | [place], [place] | [address] | | | | | [address] | [phone] | | | | | [phone] | | | +--------+--------+ + + + Social History + +-------+ [...] this encounter Miscellaneous Notes Telephone Encounter - Ny Aguilar MA - 01/26/2017 10:02 AM PDTREFILL REQUEST Date: January 26, 2017 Patient: Becky Peña [id number] Contact: Patient has asked that NO messages be left on her answering machine. Message: Pharmacy refill request Medications to be refilled: clindamycin 1 % topical lotion, Apply to affected area two times daily. Apply a thin film to the affected area. Last Appointment: 03/10/16 at 4:00 pm Last PCP Appointment: No past encounter found with Neal Lutz DO. Next Appointment: No future appointments scheduled in Dermatology. Next PCP Appointment: No future appointments scheduled with Neal Lutz DO. PCP: Neal Lutz DO Patient's pharmacy was updated and verified: Yes documented in this en counter Plan of Treatment Not on filedocumented as of this encounter Visit Diagnoses Not on filedocumented in this encounter"
--- OUTSIDE RECORDS SUMMARY | ~2020-04-08 | XMS | Encounter Summary ---
Demographics + + + | Address | General Delivery | | | [place] [address] | + + + | Home Phone | | + + + | Preferred Language | Unknown | + + + | Marital Status | Single | + + + | Synagogue Affiliation | Unknown | + + + | Race | White | + + + | Ethnic Group | Not or | + + + Author + + + | Author | [facility] | | | and [place] | + + + | Organization | [facility] | | [...] Team Providers + +------+ + | Care Piecer Up Name | Role | Phone | + +------+ + PCP | Unavailable | + +------+ + Encounter Details +--------+ + + + + | Date | Type | Department | Care Team | Description | +--------+ + + + + | 06/01/ | Hospital | [facility] | Alison Aranda | | | 2017 | Encounter | [facility]PITAL [facility] | [address] | | | | | CL[address] | [address] | | | | | [address], | [place] [address] | | | | | [place] [address] | [phone] | | | | | [phone] | | | +--------+ + + + [...] + + documented as of this encounter Medications at Time of Discharge + + + +---------+ + + | Medication | Sig | Dispensed | Refills | Start | End Date | | | | | | Date | | + + + +---------+ + + | DULoxetine | Take by mouth. | | 0 | 06/01/20 | | | (CYMBALTA) [address] | | | | 17 | 7 | | capsule | | | | | | + + + +---------+ + + documented as of this encounter Plan of Treatment Not on filedocumented as of this encounter Visit Diagnoses Not on filedocumented in this encounter"
--- OUTSIDE RECORDS SUMMARY | ~2020-04-08 | XMS | Encounter Summary ---
Demographics + + + | Address | General Delivery | | | [place] [address] | + + + | Home Phone | | + + + | Preferred Language | Unknown | + + + | Marital Status | Single | + + + | Baptism Affiliation | Unknown | + + + | Race | White | + + + | Ethnic Group | Not or | + + + Author + + + | Author | [facility] | | | and [place] | + + + | Organization | [facility] | | | [...] Team Providers + +------+ + | Care Ssds Mk 2 Advanced Operator Name | Role | Phone | + +------+ + | Neal Lutz DO | PCP | | + +------+ + Reason for Visit +--------+--------+ + | Reason | Onset | Comments | | | Date | | +--------+--------+ + | Other | 06/07/ | please advise | | | 2017 | | +--------+--------+ + Encounter Details +--------+ + + + + | Date | Type | Department | Care Team | Description | +--------+ + + + + | 06/07/ | Telephone | [facility] | Jan Peacock MD | Other (please | | 2016 | | HOSPITAL NE[facility]Y | [address] | advise) | | | | CLIN[facility] [address] | [place], [place] | | | | | [address], | [address] | | | | | [place] [address] | | | | | | [phone] | | | +--------+ + + + [...] this encounter Miscellaneous Notes Telephone Encounter - Ines Gutierrez - 06/07/2017 12:16 PM PDTPatient called back wanting to talk with you regarding the results from her test yesterday. Her best contact number henrietta thakkar is [phone]. document ed in this encounter Plan of Treatment Not on filedocumented as of this encounter Visit Diagnoses Not on filedocumented in this encounter"
--- OUTSIDE RECORDS SUMMARY | ~2020-04-08 | XMS | Encounter Summary ---
Demographics + + + | Address | [address] | | | [place] [address] | + + + | Home Phone | | + + + | Preferred Language | Unknown | + + + | Marital Status | Single | + + + | Tenriism Affiliation | DEC | + + + | Race | White | + + + | Ethnic Group | Not or | + + + Author + + + | Author | [facility] | + + + | Organization | [facility] | + + + | Address | Unknown | + + + | Phone | Unavailable | + + + Support + + +---------+ + | Name | Relationship | Address | Phone | + + +---------+ + | Jovan Cabezas | ECON | Unknown | | + + +---------+ + Care Team Providers + +------+ + | Care Sales Engagement Manager Name | Role | Phone | + +------+ + | Neal Lutz DO | PCP | | + +------+ + Encounter Details +--------+ + + + + | Date | Type | Department | Care Team | Description | +--------+ + + + + | 12/23/ | Document-Sc | Dermatology at | [facility], | | | 2015 | anned | [facility] | ,PhD 1934 | | | | | Clinic [address] | [address] [place], [place] | | | | | [place], [place] | [address] | | | | | [address] | [phone] | | | | | [phone] | | | +--------+ + + + [...]
--- OUTSIDE RECORDS SUMMARY | ~2020-04-08 | XMS | Encounter Summary ---
Demographics + + + | Address | [address] | | | [place] [address] | + + + | Home Phone | | + + + | Preferred Language | Unknown | + + + | Marital Status | Single | + + + | Mandaeism Affiliation | DEC | + + + | Race | White | + + + | Ethnic Group | Not or | + + + Author + + + | Author | [facility] | + + + | Organization | [facility] | + + + | Address | Unknown | + + + | Phone | Unavailable | + + + Support + + +---------+ + | Name | Relationship | Address | Phone | + + +---------+ + | Jovan Cabezas | ECON | Unknown | | + + +---------+ + Care Team Providers + +------+ + | Care Frame Feeder Name | Role | Phone | + [...] Description | +--------+--------+ + + + | 04/29/ | Refill | Dermatology at | [facility] | Refill Request | | 2016 | | Queenie Duncan MD | | | | | Clinic [address] | | | | | | [address] [place] | | | | | | [address] | | | | | | [phone] | | | +--------+--------+ + + + [...] Telephone Encounter - Ny Aguilar MA - 04/30/2017 8:38 AM PDTREFILL REQUEST Date: April 30, 2017 Patient: Becyk Peña [id number] Contact: Patient has asked that NO messages be left on her answering machine. Message: Pharmacy refill request Medications to be refilled: CLINDAMYCIN 1 % topical lotion, APPLY LOTION TOPICALLY TO AFFECTED AREA TWICE DAILY Last Appointment: 03/10/16 at 4:00 pm Last [...]
--- OUTSIDE RECORDS SUMMARY | ~2020-04-08 | XMS | Encounter Summary ---
Demographics + + + | Address | General Delivery | | | [place] [address] | + + + | Home Phone | | + + + | Preferred Language | Unknown | + + + | Marital Status | Single | + + + | Taoist Affiliation | Unknown | + + + | Race | White | + + + | Ethnic Group | Not or | + + + Author + + + | Author | [facility] | | | and [place] | + + + | Organization | [facility] | | | [...] Team Providers + +------+ + | Care Lever Tender Name | Role | Phone | + +------+ + | Neal Lutz DO | PCP | | + +------+ + Reason for Visit +--------+ + | Reason | Comments | +--------+ + | Pain | thoracic | +--------+ + Encounter Details +--------+---------+ + + + | Date | Type | Department | Care Team | Description | +--------+---------+ + + + | 12/04/ | Office | [facility] | Shaun Abel | Chronic left-sided | | 2017 | Visit | HOSPITAL [facility]OLOGY | [address] [facility] [address] | thoracic back pain | | | | CLINIC [address] | [address] [place], [place] | (Primary Dx) | | | | [address], | [address] | | | | | [place] [address] | | | | | | [phone] | | | +--------+---------+ + + + Social History + +-------+ +--------+------+ | Tobacco Use | Types | Packs/Day | Years | Date | | | | | Used | | + +-------+ +--------+------+ | Former Smoker | | | | | + +-------+ +--------+------+ + +---+---+---+ | Smokeless Tobacco: | | | | | Never Used | | | | + +---+---+---+ + + + | Sex Assigned at | Date Recorded | | | | + + + | Not on file | | + + + documented as of this encounter Last Filed Vital Signs + + + + + | Vital Sign | Reading | Time Taken | Comments | + + + + + | Blood Pressure | 116/62 | 07/16/2017 1:32 PM | | | | | PST | | + + + + + | Pulse | 85 | 07/16/2017 1:32 PM | | | | | PST | | + + + + + | Temperature | - | - | | + + + + + | Respiratory Rate | 18 | 07/16/2017 1:32 PM | | | | | PST | | + + + + + | Oxygen Saturation | 99% | 07/16/2017 1:32 PM | | | | | PST | | + + + + + | Inhaled Oxygen | - | - | | | Concentration | | | | + + + + + | Weight | 86.2 kg (190 lb) | 07/16/2017 1:32 PM | | | | | PST | | + + + + + | Height | 175.3 cm (5' 9") | 07/16/2017 1:32 PM | | | | | PST | | + + + + + | Body Mass Index | 28.06 | 07/16/2017 1:32 PM | | | | | PST | | + + + + + documented in this encounter Progress Notes Shaun Abel ARNP - 07/16/2017 1:30 PM PSTFormatting of this note might be diffe rent from the original. Subjective: Patient ID: Becky Peña is a 31 y.o. female. She is here for a follow up appointment for her thoracic back pain. She has some neuropathic symptoms on the left arm, but she is intol erant to Gabapentin and allergic to Sulfa, so Zonisamide is not an option. Her thoracic campos n degenerative disk disease at T11- T12 and T12- L1. She has stopped taking the Topamax and the Wellbutrin and is now only taking the Cymbalta 30 mg daily. Since it has only been a f ew weeks, she is not sure how well it is working, but would like to continue at this time. Patient's medications, allergies, past medical, surgical, social and family histories were obtained and reviewed as appropriate. Review of Systems Musculoskeletal: Positive for back pain and myalgias. Skin: Hidrenitis suppurativa Neurological: Positive for dizziness. Psychiatric/Behavioral: Depression Objective: Vitals: 07/16/17 1332 BP: 116/62 Pulse: 85 Resp: 18 PainSc: 5 PainLoc: Back Physical Exam : General Well developed, well nourished, well groomed HEENT Normocephalic, atruamatic Cardiovascular Heart rate and rhythm normal, no murmurs Neuro Right handed Mental Status Awake, alert, oriented to person, place and time Attention and concentration intact Language/speech: fluent with conversation, no lag with answering questions Behavior Appropriate Mood normal Affect normal Cranial Nerves I- deferred II- pupils are equally round and reactive to light. Visual loera are full to confrontation . Optic discs are flat with sharp margins bilaterally. III, IV and : Extraocular movements intact. No nystagmus or ptosis, normal ocular pursui ts V- Facial Sensation intact Normal strength of masticatory muscles. VII- No facial weakness or asymmetry VIII- Hearing intact to voice IX- Palate elevates symmetrically. XI- Shoulder shrug full strength. XII- Tongue is midline. No atrophy or fasciculations Motor No focal weakness No upper extremity drift Tremors absent Involuntary Movements absent Rigidity/ Cogwheel rigidity absent Sensory Pinprick, vibration and position sense intact in all extremities Reflexes Deep Tendon Reflexes intact Babinski negative Frontal release signs absent Gait and Station Normal No shuffling Arm swing normal Tandem gait intact Turning not impaired Coordination Finger to nose normal MiscellaneousModerate tenderness in the thoracic region with limited range of motio n Assessment: 1. Chronic left-sided thoracic back pain Plan: Continue medications as prescribed. Follow up with PCP as indicated. documented in this encounter Plan of Treatment Not on filedocumented as of this encounter Visit Diagnoses + + | Diagnosis | + + | Chronic left-sided thoracic back pain - Primary | + + documented in this encounter
--- OUTSIDE RECORDS SUMMARY | ~2020-04-08 | XMS | Encounter Summary ---
Demographics + + + | Address | General Delivery | | | [place] [address] | + + + | Home Phone | | + + + | Preferred Language | Unknown | + + + | Marital Status | Single | + + + | Anglican Affiliation | Unknown | + + + | Race | White | + + + | Ethnic Group | Not or | + + + Author + + + | Author | [facility] | | | and [place] | + + + | Organization | [facility] | | | and [...] Team Providers + +------+ + | Care Electro Mechanic Name | Role | Phone | + +------+ + PCP | Unavailable | + +------+ + Reason for Visit + +--------+ + | Reason | Onset | Comments | | | Date | | + +--------+ + | Results, Imaging | 06/07/ | | | | 2016 | | + +--------+ + Encounter Details +--------+ + + + + | Date | Type | Department | Care Team | Description | +--------+ + + + + | 06/07/ | Telephone | [facility] | Alison Aranda | Results, Imaging | | 2017 | | [facility] | [address] | | | | | [address] | [address] | | | | | [address], | [place] [address] | | | | | [place] [address] | [phone] | | | | | [phone] | | | +--------+ + + + [...] Telephone Encounter - Alison Aranda MD - 06/07/2017 11:13 AM PDTSpoke with patient's mother and LM for pt to call me back. I did not release PHI to mom. documented in this encounter Plan of Treatment Not on filedocumented as of this encounter Visit Diagnoses Not on filedocumented in this encounter"
--- OUTSIDE RECORDS SUMMARY | ~2020-04-08 | XMS | Encounter Summary ---
Demographics + + + | Address | General Delivery | | | [place] [address] | + + + | Home Phone | | + + + | Preferred Language | Unknown | + + + | Marital Status | Single | + + + | Bahai Affiliation | Unknown | + + + | Race | White | + + + | Ethnic Group | Not or | + + + Author + + + | Author | [facility] | | | and [place] | + + + | Organization | [facility] | | | [...] Team Providers + +------+ + | Care Maintenance Pipefitter Name | Role | Phone | + +------+ + PCP | Unavailable | + +------+ + Encounter Details +--------+ + + + + | Date | Type | Department | Care Team | Description | +--------+ + + + + | 01/05/ | Hospital | [facility] | Alison Aranda | | | 2017 | Encounter | [facility] | [address] | | | | | CL[address] | [address] | | | | | [address], | [place] [address] | | | | | [place] [address] | [phone] | | | | | [phone] | | | +--------+ + + + [...]
--- OUTSIDE RECORDS SUMMARY | ~2020-04-08 | XMS | Encounter Summary ---
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 | | | this | | | note | | | might | | | be | | | differ | | | ent | | | from | | | the | | | origin | | | al.COL | | | LECTIV | | | E?NOTI | | | FICATI | | | ON?/ | | | | | | 9 | | | :19? | | | PEÑA, | | | | | | JESSIC | | | A?MRN: | | | | | | [id number] | | | [id number] | | | riteri | | | a Met | | | Care | | | Guidel | | | inesSe | | | curity | | | and | | | Safety | | | No | | | recent | | | | | | Securi | | | ty | | | Events | | | | | | curren | | | tly on | | | | | | fileED | | | Care | | | Guidel | | | inesTh | | | ere | | | are | | | curren | | | tly no | | | ED | | | Care | | | Guidel | | | shanice | | | for | | | this | | | patien | | | t. | | | Please | | | check | | | your | | | facili | | | ty's | | | medica | | | l | | | record | | | s | | | system | | | .Care | | | Histor | | | yMedic | | | al/Rai | | | [email or web address] | | | /02/28 | | | 12:00 | | | AM | | | [facility] [place] [facility] | [facility] | | | al | | | [facility] | | | CONTAC | | | STEFANI | | | PATIEN | | | T [facility] | | | OFFICE | | | ABOUT | | | ED | | | UTILIZ | | | ATION- | | | | | | PATIEN | | | T HAS | | | BEEN | | | SEEN | | | BY [facility] | | | ON | | | 12/21/ | | | 18, | | | 12/05/ | | | 18, | | | 11/21/ | | | 18- | | | PATIEN | | | T IS | | | UTILIZ | | | ING | | | THE | | | [facility] | | | OFFICE | | | AND | | | ED. | | | ED | | | UTILIZ | | | ATION | | | LETTER | | | HAS | | | BEEN | | | SENT | | | TO | | | PATIEN | | | T.Pres | | | cripti | | | on | | | Drug | | | Report | | | (12 | | | Mo.)PD | | | MP | | | query | | | found | | | no | | | report | | | .E.D. | | | Visit | | | Count | | | (12 | | | mo.)Fa | | | cility | | | | | | Visits | | | Low | | | Acuity | | | | | | Provid | | | ence | | | St. | | | [facility] | [facility] | | | l | | | Center | | | 1 0 | | | [facility] [place] | | | y | | | Hospit | | | al 7 0 | | | Total | | | 8 0 | | | Note: | | | Visits | | | | | | indica | | | te | | | total | | | known | | | visits | | | . | | | Medica | | | id Low | | | | | | Acuity | | | Dx | | | are | | | the | | | number | | | of | | | primar | | | y | | | diagno | | | ses on | | | the | | | Medica | | | id's | | | Low | | | Acuity | | | dx | | | list. | | | | | | Recent | | | | | | Emerge | | | ncy | | | Depart | | | ment | | | Visit | | | [facility] | | | yDate | | | Facili | | | ty | | | City | | | State | | | Type | | | Diagno | | | ses or | | | Chief | | | | | | Compla | | | int | | | Aug | | | 11, | | | 2019 | | | Provid | | | ence | | | [facility] | | | [facility] | | [place] | | | [place] | | | Emerge | | | ncy | | | Aug | | | 11, | | | 2019 | | | [facility] | [place] | | | [facility] | | | [place] | | | [place] | | | Emerge | | | ncy | | | Chief | | | Compla | | | int: | | | ASSAUL | | | T,RT | | | EYE | | | LACERA | | | TION,H | | | EAD | | | PAIN | | | May | | | 20, | | | 2019 | | | [facility] | [place] | | | [facility] | | | [place] | | | [place] | | | Emerge | | | ncy | | | Other | | | long | | | term | | | (curre | | | nt) | | | drug | | | therap | | | y | | | Acquir | | | ed | | | absenc | | | e of | | | both | | | cervix | | | and | | | uterus | | | | | | Allerg | | | y | | | status | | | to | | | analge | | | sic | | | agent | | | status | | | | | | Diarrh | | | ea, | | | unspec | | | ified | | | | | | Nicoti | | | ne | | | depend | | | ence, | | | unspec | | | ified, | | | | | | uncomp | | | licate | | | d | | | Noninf | | | ective | | | | | | gastro | | | enteri | | | tis | | | and | | | coliti | | | s, | | | unspec | | | ified | | | | | | Major | | | depres | | | sive | | | disord | | | er, | | | single | | | | | | episod | | | e, | | | unspec | | | ified | | | | | | Acquir | | | ed | | | absenc | | | e of | | | other | | | specif | | | ied | | | parts | | | of | | | digest | | | joshua | | | tract | | | | | | Allerg | | | y | | | status | | | to | | | other | | | drugs, | | | | | | medica | | | ments | | | and | | | biolog | | | ical | | | substa | | | nces | | | status | | | | | | Allerg | | | y | | | status | | | to | | | sulfon | | | amides | | | | | | status | | | Kieran | | | 5, | | | 2019 | | | [facility] [place] | | | [facility] | | | [place] | | | [place] | | | Emerge | | | ncy | | | | | | Respir | | | atory | | | condit | | | ions | | | due to | | | smoke | | | | | | inhala | | | tion | | | | | | Unspec | | | ified | | | asthma | | | , | | | uncomp | | | licate | | | d | | | Shortn | | | ess of | | | | | | breath | | | | | | Acquir | | | ed | | | absenc | | | e of | | | both | | | cervix | | | and | | | uterus | | | | | | Allerg | | | y | | | status | | | to | | | other | | | drugs, | | | | | | medica | | | ments | | | and | | | biolog | | | ical | | | substa | | | nces | | | status | | | | | | Allerg | | | y | | | status | | | to | | | analge | | | sic | | | agent | | | status | | | | | | Major | | | depres | | | sive | | | disord | | | er, | | | single | | | | | | episod | | | e, | | | unspec | | | ified | | | | | | Allerg | | | y | | | status | | | to | | | penici | | | llin | | | | | | Nicoti | | | ne | | | depend | | | ence, | | | unspec | | | ified, | | | | | | uncomp | | | licate | | | d | | | Other | | | long | | | term | | | (curre | | | nt) | | | drug | | | therap | | | y Dec | | | 22, | | | 2018 | | | [facility] [place] | [facility] | | | [place] | | [place] | | | Emerge | | | ncy | | | Major | | | | | | depres | | | sive | | | disord | | | er, | | | single | | | | | | episod | | | e, | | | unspec | | | ified | | | | | | Unspec | | | ified | | | asthma | | | , | | | uncomp | | | licate | | | d | | | Person | | | al | | | histor | | | y of | | | nicoti | | | ne | | | depend | | | ence | | | Pain | | | in | | | right | | | wrist | | | | | | Enthes | | | opathy | | | , | | | unspec | | | ified | | | | | | Allerg | | | y | | | status | | | to | | | other | | | drugs, | | | | | | medica | | | ments | | | and | | | biolog | | | ical | | | substa | | | nces | | | status | | | | | | Other | | | long | | | term | | | (curre | | | nt) | | | drug | | | therap | | | y | | | Allerg | | | y | | | status | | | to | | | sulfon | | | amides | | | | | | status | | | Nov | | | 15, | | | 2018 | | | [facility] [place] | | | [facility] | | | [place] | | | [place] | | | Emerge | | | ncy | | | Chief | | | Compla | | | int: | | | VOMITI | | | NG | | | Oct | | | 21, | | | 2018 | | | [facility] [place] | | | [facility] | | | [place] | | [place] | | | Emerge | | | ncy | | | Other | | | acute | | | | | | postpr | | | ocedur | | | al | | | pain | | | | | | Unspec | | | ified | | | abdomi | | | nal | | | pain | | | | | | Other | | | long | | | term | | | (curre | | | nt) | | | drug | | | therap | | | y | | | Allerg | | | y | | | status | | | to | | | other | | | drugs, | | | | | | medica | | | ments | | | and | | | biolog | | | ical | | | substa | | | nces | | | status | | | | | | Allerg | | | y | | | status | | | to | | | sulfon | | | amides | | | | | | status | | | | | | Major | | | depres | | | sive | | | disord | | | er, | | | single | | | | | | episod | | | e, | | | unspec | | | ified | | | Sep | | | 2, | | | 2018 | | | [facility] [place] | | | [facility] | | | [place] | [place] | | | Emerge | | | ncy | | | | | | Nicoti | | | ne | | | depend | | | ence, | | | unspec | | | ified, | | | | | | uncomp | | | licate | | | d | | | Allerg | | | y | | | status | | | to | | | other | | | antibi | | | otic | | | agents | | | | | | status | | | | | | Allerg | | | y | | | status | | | to | | | sulfon | | | amides | | | | | | status | | | | | | Allerg | | | y | | | status | | | to | | | other | | | drugs, | | | | | | medica | | | ments | | | and | | | biolog | | | ical | | | substa | | | nces | | | status | | | | | | Pain | | | in | | | left | | | wrist | | | | | | Activi | | | ty, | | | walkin | | | g, | | | marchi | | | ng and | | | | | | hiking | | | | | | Fall | | | on | | | same | | | level | | | from | | | slippi | | | ng, | | | trippi | | | ng and | | | | | | stumbl | | | ing | | | withou | | | t | | | subseq | | | uent | | | striki | | | ng | | | agains | | | t | | | object | | | , | | | initia | | | l | | | encoun | | | ter | | | | | | Abrasi | | | on of | | | left | | | hand, | | | initia | | | l | | | encoun | | | ter | | | Recent | | | | | | Inpati | | | ent | | | Visit | | | [facility] | | | yDate | | | Facili | | | ty | | | City | | | State | | | Type | | | Diagno | | | ses or | | | Chief | | | | | | Compla | | | int | | | Nov | | | 15, | | | 2018 | | | [facility] [place] | | | [facility] | | | [place] | | | [place] | | | Observ | | | ation | | | | | | Nausea | | | with | | | vomiti | | | ng, | | | unspec | | | ified | | | | | | Allerg | | | y | | | status | | | to | | | other | | | drugs, | | | | | | medica | | | ments | | | and | | | biolog | | | ical | | | substa | | | nces | | | status | | | | | | Other | | | ascite | | | s | | | Major | | | depres | | | sive | | | disord | | | er, | | | single | | | | | | episod | | | e, | | | unspec | | | ified | | | | | | [place] | | | lemia | | | | | | Acute | | | cholec | | | ystiti | | | s with | | | | | | chroni | | | c | | | cholec | | | ystiti | | | s | | | Acquir | | | ed | | | absenc | | | e of | | | both | | | cervix | | | and | | | uterus | | | | | | Other | | | long | | | term | | | (curre | | | nt) | | | drug | | | therap | | | y | | | Unspec | | | ified | | | viral | | | hepati | | | tis C | | | withou | | | t | | | hepati | | | c coma | | | | | | Allerg | | | y | | | status | | | to | | | analge | | | sic | | | agent | | | status | | | Care | | | | | | TeamPr | | | ovider | | | PRC | | | Type | | | Phone | | | Fax | | | Servic | | | e | | | Dates | | | BROWN, | | | | | | ERIKA | | | LINE | | | E, [place] | | | Physic | | | katelynn | | | Assist | | | ant | | | (541) | | | [phone] | | | 00 | | | (541) | | | [phone] | | | 27 Nov | | | 16, | | | 2018 - | | | | | | Curren | | | t | | | [facility] | | | I, | | | ART | | | S E , | | | DO | | | Family | | | | | | Medici | | | ne | | | Andrea | | | 29, | | | 2016 - | | | | | | Curren | | | t | | | Xavier | | | , | | | Erika | | | line E | | | PAC | | | Treatm | | | ent | | | Curren | | | t | | | [facility] | | | I | | | ART | | | S | | | Primar | | | y Care | | | | | | (541) | | | [phone] | | | 20 Andrea | | | 29, | | | 2016 - | | | | | | Curren | | | t | | | Pendle | | | ton | | | Family | | | | | | Medici | | | ne | | | Primar | | | y Care | | | (541) | | | | | | [phone] | | | 00 | | | (541) | | | [phone] | | | 27 Andrea | | | 29, | | | 2016 - | | | | | | Curren | | | t | | | [facility] | | | I, | | | ART | | | S | | | Primar | | | y Care | | | (541) | | | | | | [phone] | | | 00 | | | (541) | | | [phone] | | | 27 Andrea | | | 29, | | | 2016 - | | | | | | Curren | | | t | | | [facility] | | | tive | | | Portal | | | This | | | patien | | | t has | | | regist | | | ered | | | at the | | | | | | Prov[facility] | | | ence | | | [facility] | | | [facility] | [facility] | | | l | | | Center | | | | | | Emerge | | | ncy | | | Depart | | | ment | | | For | | | more | | | inform | | | ation | | | visit: | | | | | | https: | | | //secu | | | [email or web address] | | | ecarep | | | [email or web address] | | | [email or web address] | | | ent/b4 | | | [id number] | | | -[id number] | | | [id number] | | | [phone]-[id number] | | | [id number] | | | 47df | | | PLEASE | | | NOTE: | | | 1. | | | Any | | | care | | | recomm | | | endati | | | ons | | | and | | | other | | | clinic | | | al | | | inform | | | ation | | | are | | | provid | | | ed as | | | guidel | | | shanice | | | or for | | | | | | histor | | | ical | | | purpos | | | es | | | only, | | | and | | | provid | | | ers | | | should | | | | | | exerci | | | se | | | their | | | own | | | clinic | | | al | | | judgme | | | nt | | | when | | | provid | | | ing | | | care. | | | 2. | | | You | | | may | | | only | | | use | | | this | | | inform | | | ation | | | for | | | purpos | | | es of | | | treatm | | | ent, | | | paymen | | | t or | | | health | | | care | | | operat | | | ions | | | activi | | | ties, | | | and | | | subjec | | | t to | | | the | | | limita | | | tions | | | of | | | applic | | | able | | | Colle[facility] | | | tive | | | Polici | | | es. | | | 3. | | | You | | | should | | | | | | consul | | | t | | | direct | | | ly | | | with | | | the | | | organi | | | zation | | | that | | | provid | | | ed a | | | care | | | guidel | | | ine or | | | other | | | | | | clinic | | | al | | | histor | | | y with | | | any | | | questi | | | ons | | | about | | | additi | | | onal | | | inform | | | ation | | | or | | | accura | | | cy or | | | comple | | | teness | | | of | | | inform | | | ation | | | provid | | | ed.? | | | 2019 | | | [facility] | | | tive | | | Medica | | | l | | | Techn[employer] | | | logies | | | , Inc[employer] | | | - | | | [email or web address] | | | llecti | | | vemedi | | | [email or web address] | | | m | +---+--------+ documented in this encounter Results , Urine, Qual (03/23/2019 5:02 PM PDT) + + + + + + | Component | Value | Ref Range | Performed | Pathologist | | | | | At | Signature | + + + + + + | HCG | Negative | Negative | [facility] | | | Qualitative | | | [facility] | | | , Urine | | | MEDICAL | | | | | | CENTER - | | | | | | LABORATORY | | + + + + + + + + | Specimen | + + | Urine | + + + + + + + | Performing | Address | City/State/Zipcode | Phone Number | | Organization | | | | + + + + + | [facility] | [address] | [place], [place] | [phone] | | [facility] | | [address] | | | - LABORATORY | | | | + + + + + Drugs of Abuse, Screen, Urine (03/23/2019 5:02 PM PDT) + + + + + + | Component | Value | Ref Range | Performed | Pathologist | | | | | At | Signature | + + + + + + | Amphetamine | Positive (A) | Negative | [facility] | | | Screen, | | | [facility] | | | Urine | | | MEDICAL | | | | | | CENTER - | | | | | | LABORATORY | | + + + + + + | Barbiturate | Negative | Negative | [facility] | | | s Screen, | | | [facility] | | | Urine | | | MEDICAL | | | | | | CENTER - | | | | | | LABORATORY | | + + + + + + | Benzodiazep | Negative | Negative | [facility] | | | shanice | | | [facility] | | | Screen, | | | MEDICAL | | | Urine | | | CENTER - | | | | | | LABORATORY | | + + + + + + | Cannabinoid | Negative | Negative | [facility] | | | s Screen, | | | [facility] | | | Urine | | | MEDICAL | | | | | | CENTER - | | | | | | LABORATORY | | + + + + + + | Cocaine | Negative | Negative | [facility] | | | Screen, | | | [facility] | | | Urine | | | MEDICAL | | | | | | CENTER - | | | | | | LABORATORY | | + + + + + + | Methadone | Negative | Negative | [facility] | | | Screen, | | | [facility] | | | Urine | | | MEDICAL | | | | | | CENTER - | | | | | | LABORATORY | | + + + + + + | Opiates | Negative | Negative | [facility] | | | Screen, | | | [facility] | | | Urine | | | MEDICAL | | | | | | CENTER - | | | | | | LABORATORY | | + + + + + + + + | Specimen | + + | Urine | + + + + + + + | Performing | Address | City/State/Zipcode | Phone Number | | Organization | | | | + + + + + | [facility] | [address] | [place] | [phone] | | [facility] | | [address] | | | - LABORATORY | | | | + + + + + Urinalysis with Microscopic with Culture if Indicated (03/23/2019 5:02 PM PDT) + + + + + + | Component | Value | Ref Range | Performed | Pathologist | | | | | At | Signature | + + + + + + | Color, | Yellow | Light Yellow, | [facility] | | | Urine | | Yellow, Straw | [facility] | | | | | | MEDICAL | | | | | | CENTER - | | | | | | LABORATORY | | + + + + + + | Clarity, | Clear | Clear | [facility] | | | Urine | | | [facility] | | | | | | MEDICAL | | | | | | CENTER - | | | | | | LABORATORY | | + + + + + + | pH, Urine | 6.0 | 5.0 - 8.0 | [facility] | | | | | | [facility] | | | | | | MEDICAL | | | | | | CENTER - | | | | | | LABORATORY | | + + + + + + | Specific | 1.012 | 1.001 - 1.030 | [facility] | | | [place], | | | [facility] | | | Urine | | | MEDICAL | | | | | | CENTER - | | | | | | LABORATORY | | + + + + + + | Protein, | Negative | Negative | [facility] | | | Urine | | | [facility] | | | | | | MEDICAL | | | | | | CENTER - | | | | | | LABORATORY | | + + + + + + | Blood, | Negative | Negative | [facility] | | | Urine | | | [facility] | | | | | | MEDICAL | | | | | | CENTER - | | | | | | LABORATORY | | + + + + + + | Glucose, | Negative | Negative | [facility] | | | Urine | | | [facility] | | | | | | MEDICAL | | | | | | CENTER - | | | | | | LABORATORY | | + + + + + + | Ketones, | Negative | Negative | [facility] | | | Urine | | | [facility] | | | | | | MEDICAL | | | | | | CENTER - | | | | | | LABORATORY | | + + + + + + | Bilirubin, | Negative | Negative | [facility] | | | Urine | | | [facility] | | | | | | MEDICAL | | | | | | CENTER - | | | | | | LABORATORY | | + + + + + + | Nitrite, | Negative | Negative | [facility] | | | Urine | | | [facility] | | | | | | MEDICAL | | | | | | CENTER - | | | | | | LABORATORY | | + + + + + + | Leukocyte | Negative | Negative | [facility] | | | Esterase, | | | [facility] | | | Urine | | | MEDICAL | | | | | | CENTER - | | | | | | LABORATORY | | + + + + + + | Urobilinoge | Negative | 0.2 mg/dL, 1.0 | [facility] | | | n, Urine | | mg/dL, Negative | [facility] | | | | | | MEDICAL | | | | | | CENTER - | | | | | | LABORATORY | | + + + + + + | White Blood | 0-2 | 0 - 2 /HPF | [facility] | | | Cells, | | | [facility] | | | Urine | | | MEDICAL | | | | | | CENTER - | | | | | | LABORATORY | | + + + + + + | Red Blood | 0-2 | 0 - 2 /HPF | [facility] | | | Cells, | | | [facility] | | | Urine | | | MEDICAL | | | | | | CENTER - | | | | | | LABORATORY | | + + + + + + | Squamous | 15-25 (A) | 0 - 2 /LPF | [facility] | | | Epithelial | | | [facility] | | | Cells, | | | MEDICAL | | | Urine | | | CENTER - | | | | | | LABORATORY | | + + + + + + | Bacteria, | 1+ (A) | Negative /HPF | [facility] | | | Urine | | | [facility] | | | | | | MEDICAL | | | | | | CENTER - | | | | | | LABORATORY | | + + + + + + | Mucus, | Present (A) | Negative /LPF | [facility] | | | Urine | | | [facility] | | | | | | MEDICAL | | | | | | CENTER - | | | | | | LABORATORY | | + + + + + + | Urine | Urine Culture Not | | [facility] | | | Comment | Indicated | | [facility] | | | | | | MEDICAL | | | | | | CENTER - | | | | | | LABORATORY | | + + + + + + + + | Specimen | + + | Urine - Urine | | specimen obtained by | | clean catch | | procedure (specimen) | + + + + + + + | Performing | Address | City/State/Zipcode | Phone Number | | Organization | | | | + + + + + | [facility] | [address] | [place] | [phone] | | [facility] | | [address] | | | - LABORATORY | | | | + + + + + Extra Gold Top Tube (03/23/2019 2:40 PM PDT) + +-------+ + + + | Component | Value | Ref Range | Performed | Pathologist | | | | | At | Signature | + +-------+ + + + | Extra Gold | Done | | [facility] | | | Top Tube | | | [facility] | | | | | | MEDICAL | | | | | | CENTER - | | | | | | LABORATORY | | + +-------+ + + + + + | Specimen | + + | Blood | + + + + + + + | Performing | Address | City/State/Zipcode | Phone Number | | Organization | | | | + + + + + | [facility] | [address] | [place], [place] | [phone] | | [facility] | | [address] | | | - LABORATORY | | | | + + + + + Extra Green Top Tube (03/23/2019 2:40 PM PDT) + +-------+ + + + | Component | Value | Ref Range | Performed | Pathologist | | | | | At | Signature | + +-------+ + + + | Extra Green | Done | | [facility] | | | Top Tube | | | [facility] | | | | | | MEDICAL | | | | | | CENTER - | | | | | | LABORATORY | | + +-------+ + + + + + | Specimen | + + | Blood | + + + + + + + | Performing | Address | City/State/Zipcode | Phone Number | | Organization | | | | + + + + + | [facility] | [address] | [place] | [phone] | | [facility] | | [address] | | | - LABORATORY | | | | + + + + + Extra Haro Top Tube (03/23/2019 2:40 PM PDT) + +-------+ + + + | Component | Value | Ref Range | Performed | Pathologist | | | | | At | Signature | + +-------+ + + + | Extra Haro | Done | | [facility] | | | Top Tube | | | [facility] | | | | | | [facility]ICAL | | | | | | CENTER - | | | | | | LABORATORY | | + +-------+ + + + + + | Specimen | + + | Blood | + + + + + + + | Performing | Address | City/State/Zipcode | Phone Number | | Organization | | | | + + + + + | [facility] | [address] | [place] | [phone] | | [facility] | | [address] | | | - LABORATORY | | | | + + + + + Extra Lavender Top Tube (03/23/2019 2:40 PM PDT) + +-------+ + + + | Component | Value | Ref Range | Performed | Pathologist | | | | | At | Signature | + +-------+ + + + | Extra | Done | | [facility] | | | Lavender | | | [facility] | | | Top Tube | | | MEDICAL | | | | | | CENTER - | | | | | | LABORATORY | | + +-------+ + + + + + | Specimen | + + | Blood | + + + + + + + | Performing | Address | City/State/Zipcode | Phone Number | | Organization | | | | + + + + + | [facility] | [address] | [place] | [phone] | | [facility] | | [address] | | | - LABORATORY | | | | + + + + + Type and Screen (03/23/2019 2:40 PM PDT) + + + + + + | Component | Value | Ref Range | Performed | Pathologist | | | | | At | Signature | + + + + + + | ABO | AB | | [facility] | | | | | | [facility] | | | | | | MEDICAL | | | | | | CENTER - | | | | | | BLOOD BANK | | + + + + + + | Rh Type | Positive | | [facility] | | | | | | [facility] | | | | | | MEDICAL | | | | | | CENTER - | | | | | | BLOOD BANK | | + + + + + + | Antibody | Negative | | [facility] | | | Screen | | | [facility] | | | | | | MEDICAL | | | | | | CENTER - | | | | | | BLOOD BANK | | + + + + + + + + | Specimen | + + | Blood | + + + + + + + | Performing | Address | City/State/Zipcode | Phone Number | | Organization | | | | + + + + + | [facility] | [address] | [place], [place] | | | [facility] | | [address] | | | - BLOOD BANK | | | | + + + + + Protime INR (03/23/2019 2:40 PM PDT) + + + + + + | Component | Value | Ref Range | Performed | Pathologist | | | | | At | Signature | + + + + + + | Prothrombin | 13.1 | 11.3 - 13.9 | [facility] | | | Time | | seconds | [facility] | | | | | | MEDICAL | | | | | | CENTER - | | | | | | LABORATORY | | + + + + + + | INR | 1.0Comment: Usual Oral | 0.9 - 1.1 | [facility] | | | | Anticoagulation Range: | | [facility] | | | | 2.0 - 3.0High | | MEDICAL | | | | Level Oral | | CENTER - | | | | Anticoagulation Range: | | LABORATORY | | | | 2.5 - 3.5 | | | | + + + + + + + + | Specimen | + + | Blood | + + + + + + + | Performing | Address | City/State/Zipcode | Phone Number | | Organization | | | | + + + + + | [facility] | [address] | [place] | [phone] | | [facility] | | [address] | | | - LABORATORY | | | | + + + + + Comprehensive Metabolic Panel (03/23/2019 2:40 PM PDT) + + + + + + | Component | Value | Ref Range | Performed | Pathologist | | | | | At | Signature | + + + + + + | Na | 141 | 136 - 145 | [facility] | | | | | mmol/L | [facility] | | | | | | MEDICAL | | | | | | CENTER - | | | | | | LABORATORY | | + + + + + + | K | 3.9 | 3.4 - 5.1 | [facility] | | | | | mmol/L | [facility] | | | | | | MEDICAL | | | | | | CENTER - | | | | | | LABORATORY | | + + + + + + | Cl | 110 (H) | 98 - 107 mmol/L | [facility] | | | | | | [facility] | | | | | | MEDICAL | | | | | | CENTER - | | | | | | LABORATORY | | + + + + + + | CO2 | 28 | 20 - 31 mmol/L | [facility] | | | | | | [facility] | | | | | | MEDICAL | | | | | | CENTER - | | | | | | LABORATORY | | + + + + + + | Anion Gap | 3 | 3 - 16 mmol/L | [facility] | | | [facility] | | | | | | [facility] | | | | | | CENTER - | | | | | | LABORATORY | | + + + + + + | Glucose | 92 | 60 - 106 mg/dL | [facility] | | | | | | [facility] | | | | | | MEDICAL | | | | | | CENTER - | | | | | | LABORATORY | | + + + + + + | BUN | 10 | 9 - 23 mg/dL | [facility] | | | | | | [facility] | | | | | | [facility] | | | | | | CENTER - | | | | | | LABORATORY | | + + + + + + | Creatinine | 0.57 | 0.55 - 1.02 | [facility] | | | | | mg/dL | [facility] | | | | | | [facility] | | | | | | CENTER - | | | | | | LABORATORY | | + + + + + + | eGFR, | >60Comment: GLOMERULAR | >=60 | [facility] | | | non- | FILTRATION | mL/min/1.73m2 | [facility] | | | [place] | RATE,ESTIMATED | | MEDICAL | | | | mL/min/1.76x0Vmgg than | | CENTER - | | | | 60 Chronic kidney | | LABORATORY | | | | disease,if found over a | | | | | | 3-month period.Less than | | | | | | 15 Kidney failureFor | | | | | | | | | | | | Americans,multiply the | | | | | | calculated GFR by 1.21. | | | | | | | | | | + + + + + + | Calcium | 8.9 | 8.7 - 10.4 | [facility] | | | | | mg/dL | [facility] | | | | | | [facility]ICAL | | | | | | CENTER - | | | | | | LABORATORY | | + + + + + + | Albumin | 3.6 | 3.2 - 4.8 g/dL | [facility] | | | | | | [facility] | | | | | | [facility] | | | | | | CENTER - | | | | | | LABORATORY | | + + + + + + | Bilirubin | 0.4 | 0.3 - 1.2 mg/dL | [facility] | | | Total | | | [facility] | | | | | | [facility] | | | | | | CENTER - | | | | | | LABORATORY | | + + + + + + | Total | 5.6 (L) | 5.7 - 8.2 g/dL | [facility] | | | Protein | | | [facility] | | | | | | [facility] | | | | | | CENTER - | | | | | | LABORATORY | | + + + + + + | AST | 15 | 0 - 34 U/L | [facility] | | | | | | [facility] | | | | | | [facility] | | | | | | CENTER - | | | | | | LABORATORY | | + + + + + + | ALT | 11 | 10 - 49 U/L | [facility] | | | | | | [facility] | | | | | | [facility] | | | | | | CENTER - | | | | | | LABORATORY | | + + + + + + | Alkaline | 69 | 46 - 116 U/L | [facility] | | | Phosphatase | | | [facility] | | | | | | [facility] | | | | | | CENTER - | | | | | | LABORATORY | | + + + + + + | Globulin | 2.0 (L) | 2.1 - 3.8 g/dL | [facility] | | | | | | [facility] | | [facility] | | [facility] | | | | | | CENTER - | | | | | | LABORATORY | | + + + + + + | Albumin/Rosy | 1.8 | 0.8 - 1.9 | [facility] | | | bulin Ratio | | | [facility] | | | | | | [facility]ICAL | | | | | | CENTER - | | | | | | LABORATORY | | + + + + + + | BUN/Creatin | 17.5 | | [facility] | | | ine Ratio | | | [facility] | | | | | | MEDICAL | | | | | | CENTER - | | | | | | LABORATORY | | + + + + + + + + | Specimen | + + | Blood | + + + + + + + | Performing | Address | City/State/Zipcode | Phone Number | | Organization | | | | + + + + + | [facility] | [address] | [place] | [phone] | | [facility] | | [address] | | | - LABORATORY | | | | + + + + + CBC with Differential (03/23/2019 2:40 PM PDT) + + + + + + | Component | Value | Ref Range | Performed | Pathologist | | | | | At | Signature | + + + + + + | White Blood | 7.9 | 4.0 - 11.0 K/uL | [facility] | | | Cells | | | [facility] | | | | | | MEDICAL | | | | | | CENTER - | | | | | | LABORATORY | | + + + + + + | Red Blood | 4.26 | 3.70 - 5.20 | [facility] | | | Cells | | M/uL | [facility] | | | | | | MEDICAL | | | | | | CENTER - | | | | | | LABORATORY | | + + + + + + | Hemoglobin | 12.3 | 11.5 - 16.0 | [facility] | | | | | g/dL | [facility] | | | | | | MEDICAL | | | | | | CENTER - | | | | | | LABORATORY | | + + + + + + | Hematocrit | 38.3 | 34.0 - 47.0 % | [facility] | | | | | | [facility] | | | | | | [facility]ICAL | | | | | | CENTER - | | | | | | LABORATORY | | + + + + + + | MCV | 89.9 | 83.0 - 101.0 fL | [facility] | | | | | | [facility] | | | | | | [facility] | | | | | | CENTER - | | | | | | LABORATORY | | + + + + + + | MCH | 28.9 | 28.0 - 35.0 pg | [facility] | | | | | | [facility] | | | | | | [facility]ICAL | | | | | | CENTER - | | | | | | LABORATORY | | + + + + + + | MCHC | 32.1 | 32.0 - 36.0 | [facility] | | | | | g/dL | [facility] | | | | | | MEDICAL | | | | | | CENTER - | | | | | | LABORATORY | | + + + + + + | RDW-CV | 12.8 | <15.0 % | [facility] | | | | | | [facility] | | | [facility] | | [facility] | | | | | | CENTER - | | | | | | LABORATORY | | + + + + + + | RDW-SD | 42.1 | 35.1 - 46.3 fL | [facility] | | | | | | [facility] | | | | | | [facility]ICAL | | | | | | CENTER - | | | | | | LABORATORY | | + + + + + + | Platelet | 180 | 140 - 440 K/uL | [facility] | | | Count | | | [facility] | | | | | | MEDICAL | | | | | | CENTER - | | | | | | LABORATORY | | + + + + + + | MPV | 12.5 (H) | 6.5 - 12.4 fL | [facility] | | | | | | [facility] | | [facility] | | | [facility]ICAL | | | | | | CENTER - | | | | | | LABORATORY | | + + + + + + | % | 57.6 | 45.0 - 82.0 % | [facility] | | | Neutrophils | | | [facility] | | | | | | MEDICAL | | | | | | CENTER - | | | | | | LABORATORY | | + + + + + + | % | 33.0 | 20.0 - 45.0 % | [facility] | | | Lymphocytes | | | [facility] | | | | | | MEDICAL | | | | | | CENTER - | | | | | | LABORATORY | | + + + + + + | % Monocytes | 9.0 | 4.0 - 12.0 % | [facility] | | | | | | [facility] | | | | | | MEDICAL | | | | | | CENTER - | | | | | | LABORATORY | | + + + + + + | % | 0.0 | 0.0 - 5.0 % | [facility] | | | Eosinophils | | | [facility] | | | | | | MEDICAL | | | | | | CENTER - | | | | | | LABORATORY | | + + + + + + | % Basophils | 0.3 | 0.0 - 1.0 % | [facility] | | | | | | [facility] | | | | | | MEDICAL | | | | | | CENTER - | | | | | | LABORATORY | | + + + + + + | % Immature | 0.1Comment: For | 0.0 - 0.4 % | [facility] | | | Granulocyte | patients, use the | | [facility] | | | s | special reference ranges | | MEDICAL | | | | listed below. | | CENTER - | | | | | | LABORATORY | | + + + + + + | Absolute | 4.56 | 1.80 - 8.50 | [facility] | | | Neutrophils | | K/uL | [facility] | | | | | | MEDICAL | | | | | | CENTER - | | | | | | LABORATORY | | + + + + + + | Absolute | 2.61 | 0.60 - 3.20 | [facility] | | | Lymphocytes | | K/uL | [facility] | | | | | | MEDICAL | | | | | | CENTER - | | | | | | LABORATORY | | + + + + + + | Absolute | 0.71 | 0.00 - 1.00 | [facility] | | | Monocytes | | K/uL | [facility] | | | | | | MEDICAL | | | | | | CENTER - | | | | | | LABORATORY | | + + + + + + | Absolute | 0.00 | 0.00 - 0.40 | [facility] | | | Eosinophils | | K/uL | [facility] | | | | | | MEDICAL | | | | | | CENTER - | | | | | | LABORATORY | | + + + + + + | Absolute | 0.02 | 0.00 - 0.10 | [facility] | | | Basophils | | K/uL | [facility] | | | | | | MEDICAL | | | | | | CENTER - | | | | | | LABORATORY | | + + + + + + | Absolute | 0.01Comment: For | 0.00 - 0.03 | [facility] | | | Immature | patients, use | K/uL | [facility] | | | Granulocyte | the special reference | | MEDICAL | | | s | ranges listed below. | | CENTER - | | | | | | LABORATORY | | + + + + + + | % nRBC | 0 | 0 - 2 per 100 | [facility] | | | | | WBCs | [facility] | | | | | | MEDICAL | | | | | | CENTER - | | | | | | LABORATORY | | + + + + + + | Absolute | 0.00 | 0.00 - 0.01 | [facility] | | | nRBC | | K/uL | [facility] | | | | | | MEDICAL | | | | | | CENTER - | | | | | | LABORATORY | | + + + + + + + + | Specimen | + + | Blood | + + + + + | Narrative | Performed At | + + + | IMMATURE GRANULOCYTES - For patients, use the following | [facility] | | reference ranges: Trim. Absolute (K/uL) Percentage (%) | [facility] | | 1st 0.003-0.091 K/uL 0.0-0.9% 2nd 0.007-0.247 K/uL | MEDICAL CENTER | | 0.1-2.0% 3rd 0.018-0.456 K/uL 0.1-2.0% | - LABORATORY | + + + + + + + + | Performing | Address | City/State/Zipcode | Phone Number | | Organization | | | | + + + + + | [facility] | [address] | [place] | [phone] | | [facility] | | [address] | | | - LABORATORY | | | | + + + + + documented in this encounter Visit Diagnoses + + | Diagnosis | + + | Facial laceration, initial encounter - Primary | + + | Closed fracture of nasal bone, initial encounter | + + | Concussion without loss of consciousness, initial encounter | + + | Closed fracture of orbital wall, initial encounter (HCC) | + + documented in this encounter
--- OUTSIDE RECORDS SUMMARY | ~2020-04-08 | XMS | Encounter Summary ---
Demographics + + + | Address | General Delivery | | | [place] [address] | + + + | Home Phone | | + + + | Preferred Language | Unknown | + + + | Marital Status | Single | + + + | Christian Affiliation | Unknown | + + + [...] Team Providers + +------+ + | Care Property Portfolio Officer Name | Role | Phone | + +------+ + | Neal Lutz DO | PCP | | + +------+ + Encounter Details +--------+ + + + + | Date | Type | Department | Care Team | Description | +--------+ + + + + | 01/31/ | Orders Only | [facility] | Shabbir, | Chronic left-sided | | 2018 | | [facility] | Jerry, [address] | thoracic back pain | | | | CLIN[facility] [address] | [address] [facility], | (Primary Dx) | | | | [address] | [place] [address] | | | | | [place] [address] | [phone] | | | | | [phone] | | | +--------+ + + + [...] Primary | + + documented in this encounter"
--- OUTSIDE RECORDS SUMMARY | ~2020-04-08 | XMS | Encounter Summary ---
Demographics + + + | Address | General Delivery | | | [place] [address] | + + + | Home Phone | | + + + | Preferred Language | Unknown | + + + | Marital Status | Single | + + + | Mu-Ism Affiliation | Unknown | + + + | Race | White | + + + | Ethnic Group | Not or | + + + Author + + + | Author | [facility] | | | and [place] | + + + | Organization | [facility] | | [...] Team Providers + +------+ + | Care Improvement Manager Name | Role | Phone | + +------+ + | Neal Lutz DO | PCP | | + +------+ + Encounter Details +--------+ + + + + | Date | Type | Department | Care Team | Description | +--------+ + + + + | 01/15/ | Orders Only | [facility] | Helena Gutierrez RN | Dizziness; Shoulder | | 2018 | | [facility] | | pain, unspecified | | | | CLIN[facility] [address] | | chronicity, | | | | [address], | | unspecified | | | | [place] [address] | | laterality | | | | [phone] | | | +--------+ + + + [...] | Diagnosis | + + | Dizziness Dizziness and giddiness | + + | Shoulder pain, unspecified chronicity, unspecified laterality | + + documented in this encounter"
--- OUTSIDE RECORDS SUMMARY | ~2020-04-08 | XMS | Encounter Summary ---
Demographics + + + | Address | General Delivery | | | [place] [address] | + + + | Home Phone | | + + + | Preferred Language | Unknown | + + + | Marital Status | Single | + + + | Mandaen Affiliation | Unknown | + + + [...] Team Providers + +------+ + | Care Manager Critical Care Name | Role | Phone | + [...] Manoj, | | | | | | Shoulder | Alison Iniguez, | | | | | | pain, | [address] | | | | | | unspecified | [address] [place] | | | | | | chronicity, | [place], [place] | | | | | | unspecified | [address] | | | | | | laterality | Phone: | | | | | | Procedures | [phone] | | | | | | MRI Cervical | Fax: | | | | | | Spine wo | [phone] | | | | | | Contrast | | | +--------+--------+ + + + + Diagnostic/Screening (Routine) +--------+--------+ + + + + [...] | | | | | MRI Brain wo | [place] | | | | | | Contrast | [place] | | | | | | | [address] | | | | | | | Phone: | | | | | | | [phone] | | | | | | | Fax: | | | | | | | [phone] | | +--------+--------+ + + + + Encounter Details +--------+ + + + + | Date | Type | Department | Care Team | Description | +--------+ + + + + | 06/04/ | Orders Only | [facility] | Alison Aranda | Shoulder pain, | | 2016 | | [facility]OS[facility] | MD [address] | unspecified | | | | CLIN[facility] [address] | [address] | chronicity, | | | | [address], | [place] [address] | unspecified | | | | [place] [address] | [phone] | laterality (Primary | | | | [phone] | | Dx); Dizziness | +--------+ + + + + Social [...] + +---------+--------+ + + | MRI Brain wo | Imaging | Routin | Dizziness | Expected: | | Contrast | | e | | 06/04/2017, Expires: | | | | | | 06/04/2018 | + +---------+--------+ + + | MRI Cervical Spine | Imaging | Routin | Shoulder pain, | Expected: | | wo Contrast | | e | unspecified | 06/04/2017, Expires: | | | | | chronicity, | 06/04/2018 | | | | | unspecified | | | | | | laterality | | + +---------+--------+ + + documented as of this encounter Visit Diagnoses + + | Diagnosis | + + | Shoulder pain, unspecified chronicity, unspecified laterality - Primary | + + | Dizziness Dizziness and giddiness | + + documented in this encounter"
--- OUTSIDE RECORDS SUMMARY | ~2020-04-08 | XMS | Encounter Summary ---
Demographics + + + | Address | [address] | | | [place] [address] | + + + | Home Phone | | + + + | Preferred Language | Unknown | + + + | Marital Status | Single | + + + | Hinduism Affiliation | DEC | + + + | Race | White | + + + | Ethnic Group | Not or | + + + Author + + + | Author | [facility] | + + + | Organization | [facility] | + + + | Address | Unknown | + + + | Phone | Unavailable | + + + Support + + +---------+ + | Name | Relationship | Address | Phone | + + +---------+ + | Jovan Cabezas | ECON | Unknown | | + + +---------+ + Care Team Providers + +------+ + | Care Cut Off Machine Operator Name | Role | Phone | [...] Description | +--------+--------+ + + + | 07/30/ | Refill | Dermatology at | Carolina Patel, | Refill Request | | 2016 | | Queenie Funk | ,PhD [address] | | | | [address] [place], [place] | | | | | [place], [place] | [address] | | | | | [address] | [phone] | | | | | [phone] | | | +--------+--------+ + + + [...] Telephone Encounter - Ny Aguilar MA - 07/30/2017 12:27 PM PST Date of last visit with Registration Coordinator: 03/10/16 at 4:00 pm Requested Prescriptions Pending Prescriptions Disp Refills CLINDAMYCIN 1 % topical lotion [Pharmacy Med Name: CLINDAMYCIN 10MG/ML LOT] 2 Sig: APPLY LOTION TOPICALLY TO AFFECTED AREA TWICE DAILY No future appointments scheduled in Dermatology. No future appointments scheduled with Neal Lutz DO. documented in this en counter Plan of Treatment Not on filedocumented as of this encounter Visit Diagnoses Not on filedocumented in this encounter"
== END 2020-04-08 15:59 | disposition home or self-care (01) ==
LOC: ED 14:10
DX: T19.2XXA Foreign body in vulva and vagina, initial encounter (principal); F32.9 Major depressive disorder, single episode, unspecified; F17.200 Nicotine dependence, unspecified, uncomplicated; Z88.2 Allergy status to sulfonamides; Z88.8 Allergy status to other drugs, medicaments and biological substances; X58.XXXA Exposure to other specified factors, initial encounter
CPT/HCPCS: 99283

== ENCOUNTER 2020-07-30 20:19 | Emergency (ER) | payer OTHER ==
[~2020-07-30] VITALS: Ht 175.3 cm; Wt 77.1 kg
[2020-07-30] MEDS ORDERED: IBU800 MG PO (22:08)
== END 2020-07-30 22:28 | disposition home or self-care (01) ==
LOC: ED 20:19
DX: M25.562 Pain in left knee (principal); F32.9 Major depressive disorder, single episode, unspecified; F17.200 Nicotine dependence, unspecified, uncomplicated; Z88.2 Allergy status to sulfonamides; Z88.8 Allergy status to other drugs, medicaments and biological substances
CPT/HCPCS: 73560; 99283-25; A9270

== ENCOUNTER 2021-02-23 14:56 | Emergency (ER) | payer OTHER ==
[~2021-02-23] VITALS: Ht 175.3 cm; Wt 72.6 kg
[~2021-02-23 14:56] MED LIST changes: +IBU800 MG PO
[2021-02-23] MEDS ORDERED: CYMBALTA60 MG (15:28)
[2021-02-23] MEDS ORDERED: VENTOLIN HFA18 GM INH (15:29)
[2021-02-23] MEDS ORDERED: METHOCARBAMOL500 MG PO (16:11)
== END 2021-02-23 16:32 | disposition home or self-care (01) ==
LOC: ED 14:56
DX: M54.5 Low back pain (principal); F17.200 Nicotine dependence, unspecified, uncomplicated; Z88.8 Allergy status to other drugs, medicaments and biological substances; Z88.2 Allergy status to sulfonamides; Z79.899 Other long term (current) drug therapy
CPT/HCPCS: 99283; A9270

== ENCOUNTER 2021-07-24 19:07 | Emergency (ER) | payer OTHER ==
[~2021-07-24] VITALS: Ht 175.3 cm; Wt 77.7 kg
[~2021-07-24 19:07] MED LIST changes: +CYMBALTA60 MG; +METHOCARBAMOL500 MG PO; +VENTOLIN HFA18 GM INH
[2021-07-24] MEDS ORDERED: CYCLOBENZAPRINE10 MG PO (20:22)
== END 2021-07-24 20:45 | disposition home or self-care (01) ==
LOC: ED 19:07
DX: M62.838 Other muscle spasm (principal); F17.200 Nicotine dependence, unspecified, uncomplicated; Z88.2 Allergy status to sulfonamides; Z88.8 Allergy status to other drugs, medicaments and biological substances; Z79.899 Other long term (current) drug therapy
CPT/HCPCS: 73030; 99283-25

== ENCOUNTER 2021-08-13 21:31 | Emergency (ER) | payer OTHER ==
[~2021-08-13] VITALS: Ht 175.3 cm; Wt 77.6 kg
[~2021-08-13 21:31] MED LIST changes: +CYCLOBENZAPRINE10 MG PO
--- OUTSIDE RECORDS SUMMARY | 2021-08-13 21:38 | XMS ---
PreManage Notification: REDD MERCADO Security Infectious Disease Technician Events No recent Security Events currently on file CRITERIA MET - [facility] - 2 Visits in 30 Days CARE PROVIDERS KATHERINE CROSS Physician Cnc Grinder 06/28/2018-Current PHONE: [phone] AILIN HURST [facility] 03/10/2016-Current PHONE: Unknown El has no Care Guidelines for this patient. Care History Medical/Surgical 08/19/2018 [facility] - W CONTACTED PATIENT PCP OFFICE ABOUT ED UTILIZATION- - PATIENT HAS BEEN SEEN BY PCP ON 08/02/18, 07/17/18, 07/03/18- PATIENT IS UTILIZING THE PCP OFFICE AND ED. - ED UTILIZATION LETTER HAS BEEN SENT TO [facility]. Mindy VISIT COUNT (12 MO.) [address] [facility] TOTAL 3 NOTE: Visits indicate total known visits. ED/UCC VISIT TRACKING (12 MO.) 08/13/2021 21:32 [facility] [place] TYPE: Emergency COMPLAINT: - L SHOULDER PAIN 07/24/2021 19:08 [facility] [place] TYPE[place] Emergency COMPLAINT: - LT SHOULDER PAIN DIAGNOSES: - Pain in left shoulder - Allergy status to sulfonamides - Other halfway (current) drug therapy - Other muscle spasm - Nicotine dependence, unspecified, uncomplicated - Allergy status to other drugs, medicaments and biological substances 02/23/2021 14:[address] [facility] [place] TYPE: Emergency COMPLAINT: - LOWER BACK PAIN DIAGNOSES: - Nicotine dependence, unspecified, uncomplicated - Allergy status to other drugs, medicaments and biological substances - Low back pain - Allergy status to sulfonamides - Other halfway (current) drug therapy INPATIENT VISIT TRACKING (12 MO.) No inpatient visits to display in this time frame [email or web address]
== END 2021-08-13 23:40 | disposition home or self-care (01) ==
LOC: ED 21:31
DX: M25.512 Pain in left shoulder (principal); F17.200 Nicotine dependence, unspecified, uncomplicated; Z88.2 Allergy status to sulfonamides; Z88.8 Allergy status to other drugs, medicaments and biological substances; Z79.899 Other long term (current) drug therapy
CPT/HCPCS: 99283

== ENCOUNTER 2021-11-10 09:08 | Emergency (ER) | payer OTHER ==
[~2021-11-10] VITALS: Ht 175.3 cm; Wt 76.7 kg
[2021-11-10] MEDS ORDERED: DULOXETINE HCL20 MG PO (09:23)
== END 2021-11-10 09:55 | disposition home or self-care (01) ==
LOC: ED 09:08
DX: S61.216A Laceration without foreign body of right little finger without damage to nail, initial encounter (principal); J45.909 Unspecified asthma, uncomplicated; F17.200 Nicotine dependence, unspecified, uncomplicated; Z88.2 Allergy status to sulfonamides; Z88.8 Allergy status to other drugs, medicaments and biological substances; Z88.6 Allergy status to analgesic agent; Z79.899 Other long term (current) drug therapy; W26.8XXA Contact with other sharp object(s), not elsewhere classified, initial encounter
CPT/HCPCS: 99282

== ENCOUNTER 2021-11-29 05:51 | Emergency (ER) | payer OTHER ==
[~2021-11-29] VITALS: Ht 175.3 cm; Wt 80.0 kg
[~2021-11-29 05:51] MED LIST changes: +DULOXETINE HCL20 MG PO
--- OUTSIDE RECORDS SUMMARY | 2021-11-29 05:52 | XMS ---
PreManage Notification: REDD MERCADO Security Business Services Sales Representative Events 1 event(s) in the past 18 months Most recent security events: Elopement at [facility] 09/06/2021 15:16 - Other Details: PATIENT LWBS CRITERIA MET - [facility] - 2 Visits in 30 Days CARE PROVIDERS KATHERINE CROSS Physician Senior Sql Server Developer Current PHONE: [phone] AILIN HURST [facility] 03/10/2016-Current PHONE: Unknown El has no Care Guidelines for this patient. Care History Medical/Surgical 08/19/2018 [facility] - [facility] CONTACTED PATIENT PCP OFFICE ABOUT ED UTILIZATION- - PATIENT HAS BEEN SEEN BY PCP ON 08/02/18, 07/17/18, 07/03/18- PATIENT IS UTILIZING THE PCP OFFICE AND ED. - ED UTILIZATION LETTER HAS BEEN SENT TO [facility]. Mindy VISIT COUNT (12 MO.) 6 [facility] TOTAL 6 NOTE: Visits indicate total known visits. ED/UCC VISIT TRACKING (12 MO.) 11/29/2021 05:51 [facility] [place] TYPE[place] Emergency COMPLAINT: - R HAND INJURY 11/10/2021 09:08 [facility] [place] TYPE[place] COMPLAINT: - R PINKY FINGER LACERATION DIAGNOSES: - Allergy status to other drugs, medicaments and biological substances - Other terminal makeup operator (current) drug therapy - Contact with other sharp object(s), not elsewhere classified, initial encounter - Nicotine dependence, unspecified, uncomplicated - Laceration without foreign body of right little finger without damage to nail, initial encounter - Unspecified asthma, uncomplicated - Allergy status to analgesic agent - Allergy status to sulfonamides 09/06/2021 15:16 [facility] [place] TYPE[place] Emergency COMPLAINT: - BOTTOM BOTH FEET/TOES PAIN 08/13/2021 21:32 [facility] [place] TYPE: Emergency COMPLAINT: - L SHOULDER PAIN DIAGNOSES: - Pain in left shoulder - Allergy status to other drugs, medicaments and biological substances - Other care home (current) drug therapy - Nicotine dependence, unspecified, uncomplicated - Allergy status to sulfonamides 07/24/2021 19:08 [facility] [place] TYPE: Emergency COMPLAINT: - LT SHOULDER PAIN DIAGNOSES: - Pain in left shoulder - Allergy status to sulfonamides - Other terminal makeup operator (current) drug therapy - Other muscle spasm - Nicotine dependence, unspecified, uncomplicated - Allergy status to other drugs, medicaments and biological substances 02/23/2021 14:[address] [facility] [place] TYPE: Emergency COMPLAINT: - LOWER BACK PAIN DIAGNOSES: - Nicotine dependence, unspecified, uncomplicated - Allergy status to other drugs, medicaments and biological substances - Low back pain - Allergy status to sulfonamides - Other terminal makeup operator (current) drug therapy INPATIENT VISIT TRACKING (12 MO.) No inpatient visits to display in this time frame [email or web address]
[2021-11-29] MEDS ORDERED: CYMBALTA30 MG PO (06:07)
== END 2021-11-29 08:04 | disposition home or self-care (01) ==
LOC: ED 05:51
DX: S60.221A Contusion of right hand, initial encounter (principal); J45.909 Unspecified asthma, uncomplicated; F17.200 Nicotine dependence, unspecified, uncomplicated; Z88.2 Allergy status to sulfonamides; Z88.8 Allergy status to other drugs, medicaments and biological substances; Z88.6 Allergy status to analgesic agent; Z79.899 Other long term (current) drug therapy; W26.8XXA Contact with other sharp object(s), not elsewhere classified, initial encounter
CPT/HCPCS: 73130; 99283-25

== ENCOUNTER 2022-08-04 18:17 | Emergency (ER) | payer OTHER ==
[~2022-08-04] VITALS: Ht 175.3 cm; Wt 82.9 kg
--- OUTSIDE RECORDS SUMMARY | 2022-08-04 18:26 | XMS ---
PreManage Notification: REDD MERCADO Security Broomcorn Grader Events 2 event(s) in the past 18 months Most recent security events: Elopement at [facility] 07/19/2022 08:13 - Patient eloped before treatment completed. - Patient with suicidal and/or homicidal ideations eloped. - Patient eloped with IV in place. Details: Patient LWBS. Elopement at [facility] 09/06/2021 15:16 - Other Details: PATIENT LWBS CRITERIA MET - [facility] - 2 Visits in 30 Days CARE PROVIDERS KATHERINE CROSS Physician Bail Attacher 08/15/2021-Current PHONE: Unknown AILIN HURST [facility] 03/10/2016-Current PHONE: Unknown El has no Care Guidelines for this patient. Care History Medical/Surgical 08/19/2018 [facility] - CHW CONTACTED PATIENT PCP OFFICE ABOUT ED UTILIZATION- - PATIENT HAS BEEN SEEN BY PCP ON 08/02/18, 07/17/18, 07/03/18- PATIENT IS UTILIZING THE PCP OFFICE AND ED. - ED UTILIZATION LETTER HAS BEEN SENT TO PATIENT. Guillen VISIT COUNT (12 MO.) 6 [facility] TOTAL 6 NOTE: Visits indicate total known visits. ED/UCC VISIT TRACKING (12 MO.) 08/04/2022 18:19 [facility] [place] TYPE[place] Emergency COMPLAINT: - FELL AT WORK 07/19/2022 08:13 [facility] [place] TYPE: Emergency COMPLAINT: - NECK/SHOULDER/BACK PAIN 11/29/2021 05:51 [facility] [place] TYPE: Emergency COMPLAINT: - R HAND INJURY DIAGNOSES: - Allergy status to analgesic agent - Other fci (current) drug therapy - Contusion of right hand, initial encounter - Nicotine dependence, unspecified, uncomplicated - Allergy status to other drugs, medicaments and biological substances - Allergy status to sulfonamides - Pain in right hand - Unspecified asthma, uncomplicated - Contact with other sharp object(s), not elsewhere classified, initial encounter 11/10/2021 09:08 [facility] [place] TYPE[place] Emergency COMPLAINT: - R PINKY FINGER LACERATION DIAGNOSES: - Allergy status to analgesic agent - Laceration without foreign body of right little finger without damage to nail, initial encounter - Contact with other sharp object(s), not elsewhere classified, initial encounter - Allergy status to other drugs, medicaments and biological substances - Allergy status to sulfonamides - Unspecified asthma, uncomplicated - Nicotine dependence, unspecified, uncomplicated - Other manager long term care (current) drug therapy 09/06/2021 15:16 [facility] [place] TYPE[place] Emergency COMPLAINT: - BOTTOM BOTH FEET/TOES PAIN 08/13/2021 21:32 [facility] [place] TYPE: Emergency COMPLAINT: - L SHOULDER PAIN DIAGNOSES: - Allergy status to sulfonamides - Other manager long term care (current) drug therapy - Pain in left shoulder - Nicotine dependence, unspecified, uncomplicated - Allergy status to other drugs, medicaments and biological substances INPATIENT VISIT TRACKING (12 MO.) No inpatient visits to display in this time frame [id number]
[2022-08-04] MEDS ORDERED: MELOXICAM15 MG PO (19:14)
== END 2022-08-04 19:42 | disposition home or self-care (01) ==
LOC: ED 18:17
DX: S63.619A Unspecified sprain of unspecified finger, initial encounter (principal); Z88.2 Allergy status to sulfonamides; Z88.8 Allergy status to other drugs, medicaments and biological substances; Z79.899 Other long term (current) drug therapy; W01.0XXA Fall on same level from slipping, tripping and stumbling without subsequent striking against object, initial encounter
CPT/HCPCS: 29125; 73130; 99283-25; A9270; J1885

== ENCOUNTER 2022-11-16 13:31 | Emergency (ER) | payer OTHER ==
[~2022-11-16] VITALS: Ht 175.3 cm; Wt 83.0 kg
[~2022-11-16 13:31] MED LIST changes: +MELOXICAM15 MG PO
[2022-11-16] MEDS ORDERED: CEPHALEXIN500 M1 PO (15:20)
== END 2022-11-16 15:28 | disposition home or self-care (01) ==
LOC: ED 13:31
DX: L03.115 Cellulitis of right lower limb (principal); J45.909 Unspecified asthma, uncomplicated; F17.200 Nicotine dependence, unspecified, uncomplicated; Z88.2 Allergy status to sulfonamides; Z88.8 Allergy status to other drugs, medicaments and biological substances; Z79.899 Other long term (current) drug therapy
CPT/HCPCS: 99283; A9270

== ENCOUNTER 2022-11-18 12:34 | Emergency (ER) | payer OTHER ==
[~2022-11-18] VITALS: Ht 175.3 cm; Wt 82.7 kg
[~2022-11-18 12:34] MED LIST changes: +CEPHALEXIN500 M1 PO
--- OUTSIDE RECORDS SUMMARY | 2022-11-18 12:43 | XMS ---
PreManage Notification: REDD MERCADO Security Wastewater Analyst Lab Analyst Events 2 event(s) in the past 18 months Most recent security events: Elopement at [facility] 07/19/2022 08:13 - Patient eloped before treatment completed. - Patient with suicidal and/or homicidal ideations eloped. - Patient eloped with IV in place. Details: Patient LWBS. Elopement at [facility] 09/06/2021 15:16 - Other Details: PATIENT LWBS CRITERIA MET - [facility] - 2 Visits in 30 Days CARE PROVIDERS -[place]- Dentist: Assembler [employer] [facility] PHONE: [phone] KATHERINE CROSS Physician 08/15/2021-Current PHONE: Unknown AILIN HURST [facility] 03/10/2016-Current PHONE: Unknown El has no Care Guidelines for this patient. Care History Medical/Surgical 08/19/2018 [facility] - W CONTACTED PATIENT PCP OFFICE ABOUT ED UTILIZATION- - PATIENT HAS BEEN SEEN BY PCP ON 08/02/18, 07/17/18, 07/03/18- PATIENT IS UTILIZING THE PCP OFFICE AND ED. - ED UTILIZATION LETTER HAS BEEN SENT TO PATIENT. Mindy VISIT COUNT (12 MO.) 5 [facility] TOTAL 5 NOTE: Visits indicate total known visits. ED/UCC VISIT TRACKING (12 MO.) 11/18/2022 12:35 [facility] [place] TYPE: Emergency COMPLAINT: - SKIN PROBLEM 11/16/2022 13:32 [facility] [place] COMPLAINT: - R FOOT PAIN 08/04/2022 18:19 [facility] [place] [place] TYPE: Emergency COMPLAINT: - FELL AT WORK DIAGNOSES: - Allergy status to other drugs, medicaments and biological substances - Pain in left finger(s) - Other press tender long goods (current) drug therapy - Fall on same level from slipping, tripping and stumbling without subsequent striking against object, initial encounter - Allergy status to sulfonamides - Unspecified sprain of unspecified finger, initial encounter 07/19/2022 08:13 [facility] [place] [place] TYPE: Emergency COMPLAINT: - NECK/SHOULDER/BACK PAIN 11/29/2021 05:[address] [facility] [place] TYPE: Emergency COMPLAINT: - R HAND INJURY DIAGNOSES: - Contact with other sharp object(s), not elsewhere classified, initial encounter - Allergy status to analgesic agent - Other long-term (current) drug therapy - Contusion of right hand, initial encounter - Nicotine dependence, unspecified, uncomplicated - Allergy status to other drugs, medicaments and biological substances - Allergy status to sulfonamides - Pain in right hand - Unspecified asthma, uncomplicated INPATIENT VISIT TRACKING (12 MO.) No inpatient visits to display in this time frame [email or web address]
[2022-11-18] MEDS ORDERED: DOXYCYCLINE HY100 MG PO (15:18)
== END 2022-11-18 15:27 | disposition home or self-care (01) ==
LOC: ED 12:34
DX: L03.115 Cellulitis of right lower limb (principal); J45.909 Unspecified asthma, uncomplicated; F17.200 Nicotine dependence, unspecified, uncomplicated
CPT/HCPCS: 36415; 80048; 85025; 96365; 99283-25; J0696

== ENCOUNTER 2023-08-19 13:22 | Emergency (ER) | payer OTHER ==
[~2023-08-19] VITALS: Ht 175.3 cm; Wt 85.1 kg
[~2023-08-19 13:22] MED LIST changes: +DOXYCYCLINE HY100 MG PO
[2023-08-19] MEDS ORDERED: TAMIFLU75 MG PO (14:48)
[2023-08-19] MEDS ORDERED: VENTOLIN HFA18 GM INH (14:59)
[2023-08-19 15:00] VITALS: BP 97/70
== END 2023-08-19 15:00 | disposition home or self-care (01) ==
LOC: ED 13:22
DX: J11.1 Influenza due to unidentified influenza virus with other respiratory manifestations (principal); F17.200 Nicotine dependence, unspecified, uncomplicated; Z88.2 Allergy status to sulfonamides; Z88.8 Allergy status to other drugs, medicaments and biological substances; Z79.899 Other long term (current) drug therapy
CPT/HCPCS: 99283

== ENCOUNTER 2024-03-31 10:21 | Observation (INO) | payer OTHER ==
[~2024-03-31] VITALS: Ht 175.3 cm; Wt 79.7 kg
[~2024-03-31 10:21] MED LIST changes: +TAMIFLU75 MG PO
[2024-03-31 11:00] LABS: BASOPHILS 0.8 % (0-2); EOSINOPHILS 1.7 % (0-6); HEMATOCRIT 43.1 % (35.0-50.0); HEMOGLOBIN 14.4 g/dL (12.0-18.0); MCHC 33.5 g/dl (30-36); MCV 92.6 fl (81-99); MONOCYTES 6.7 % (0-12); NEUTROPHILS 56.8 % (39-80); PLATELET COUNT 177 K/uL (140-440); RBC 4.66 M/ul (4.3-5.7); RDW 12.4 (10.5-15.0)
[2024-03-31 11:13] LABS: ALBUMIN 3.5 g/dL (3.4-5.0); ALBUMIN/GLOBULIN RATIO 1.13 (1.1-2.4); ANION GAP 12.3 (7-21); BILIRUBIN, TOTAL 0.4 ng/dL (0.2-1.0); BUN/CREATININE RATIO 15.06 (6.0-28.6); CALCIUM 8.5 mg/dL (8.5-10.1); CREATININE, SERUM 0.73 mg/dL (0.55-1.02); POTASSIUM 3.3 mmol/L (3.5-5.1); PROTEIN, TOTAL 6.6 g/dL (6.4-8.2)
[2024-03-31] MEDS ORDERED: POTASSIUM REPLACEMENT PROTOCOL ORAL/IV PO SCH (12:30)
[2024-03-31] MEDS ORDERED: MAGNESIUM REPLACEMENT PROTOCOL ORAL/IV IV SCH (12:45)
[2024-03-31] MEDS ORDERED: ENOXAPARIN SODIUM 40 MG/0.4 ML SYR SUB-Q SCH (12:54)
[2024-03-31] MEDS ORDERED: PROCHLORPERAZINE EDISYLATE 10 MG/2 ML VIAL IV PRN (13:00)
[2024-03-31] MEDS ORDERED: ondansetron HCL 4 MG/2 ML VIAL IV PRN (13:00)
[2024-03-31] MEDS ORDERED: NICOTINE 21 MG/24 HR 1 EA TDSY TD PRN (13:00)
[2024-03-31] MEDS ORDERED: MAGNESIUM HYDROXIDE 30 ML UDC PO PRN (13:00)
--- NOTE | 2024-03-31 13:06 | EKG ---
[facility] [address] [facility] [place], [place] [address] Signed Normal sinus rhythm Normal ECG No previous ECGs available Confirmed by Harriet Bravo ([id number]) on 03/31/2024 1:06:14 PM Electronically Signed By: HARRIET BRAVO MD 03/31/24 1306 PATIENT NAME: REDD MERCADO Electrocardiogram DATE OF : 85 PHYSICIAN: HARRIET BRAVO MD REPORT #: [id number] REPORT IS CONFIDENTIAL AND NOT TO BE RELEASED WITHOUT AUTHORIZATION
[2024-03-31] MEDS ORDERED: ASPIRIN 325 MG TAB PO SCH (13:15)
[2024-03-31] MEDS ORDERED: POTASSIUM CHLORIDE 10 MEQ TABCR PO ONE (13:30)
[2024-03-31 13:31] VITALS: BP 109/57
--- NOTE | 2024-03-31 13:32 | NUR ---
PT SELF TRANSFERS TO BED FROM STRETCHER. ORIENTED TO CONTROLS, CALL LIGHT, AND ROUTINE. FRESH H20 TO BEDSIDE. PT AGREES SHE STILL HAS SOMEWHAT OF A HEADACHE DENIES ANY OTHER DISCOMFORT. REPORTS NUMBNESS AROUND HER NASAL AREA AND 2 FINGERS OF RIGHT HAND NO OTHER SYMPTOMS NOTED. BOYFRIEND IS PRESENT AT THIS TIME
[2024-03-31 13:35] LABS: PROTIME 12.8 Sec (11.2-14.2)
[2024-03-31 13:37] LABS: PARTIAL THROMBOPLASTIN TIME 28.9 Sec (22.9-41.3)
[2024-03-31 13:46] LABS: CHOLESTEROL/HDL RATIO 2.5; TSH, 3RD GENERATION 0.713 uIU/mL (0.358-3.740)
[2024-03-31] MEDS ORDERED: ASPIRIN 81 MG TABEC PO SCH (13:48)
--- NOTE | 2024-03-31 14:15 | NUR ---
PT REPORTS HAVING A HARD TIME SWALLOWING PILLS, DOES FINE WITH MEAT AND EVERYTHING ELSE JUST PILLS. WAS ABLE TO GET THEM DOWN THIS TIME.
--- NOTE | 2024-03-31 15:00 | NUR ---
PT RESTING EYES CLOSED
--- NOTE | 2024-03-31 15:08 | NUR ---
WHEN PATIENT GOT TO THE FLOOR AND SETTLE IN HER ROOM AROUND 1330. MATTHEW TOLD ME THAT PATIENT WANTED A WARM BLAMKET.
--- NOTE | 2024-03-31 15:28 | NUR ---
PATIENT SLEEPING, ALLOWED TO REST AT THIS TIME.
--- NOTE | 2024-03-31 16:26 | NUR ---
REPORT FROM EMIL CHATTERJEE AT 1600. PATIENT RETURNED FROM MRI AT 1620 AND IS RESTING IN BED, FAMILY IN TO VISIT BRIEFLY.
[2024-03-31 16:33] VITALS: BP 109/57
[2024-03-31] MEDS ORDERED: ALBUTEROL SULFATE 0.083% 3 ML VIAL INH PRN (17:30)
--- NOTE | 2024-03-31 17:58 | NUR ---
PATIENT IS RESTING IN BED, DENIES NEEDS.
[2024-03-31 18:05] VITALS: BP 101/52
--- NOTE | 2024-03-31 19:20 | NUR ---
SHIFT REPORT RECEIVED FROM KOFFI RN, PT ASLEEP, RESP EVEN AND REG, ROOM DARK, PT ON RIGHT SIDE.
[2024-03-31] MEDS ORDERED: MELATONIN 3 MG TAB PO PRN (21:00)
--- NOTE | 2024-03-31 21:35 | NUR ---
PT AWAKEN FOR VS AND ASSESSMENT, PT ALERT AND ORIENTENED, SLIGHT HEADACHE REPORTED BUT DENIES MEDICATION FOR THIS, REQUESING ICE WATER, GIVEN, SIDE RAILS UP X 2, PT RESTING WHEN LEFT UNDISTURBED.
[2024-03-31 21:37] VITALS: BP 101/52
--- NOTE | 2024-03-31 22:35 | NUR ---
PT APPEARS TO SLEEP, RESP EVEN AND REGULAR,
[2024-04-01] VITALS (7 sets, daily range): BP systolic 95–108; BP diastolic 48–53
--- NOTE | 2024-04-01 00:01 | NUR ---
PT APPEARS TO SLEEP, RESP EVEN AND REG, WITHOUT SIGNS OF DISTRESS.
--- NOTE | 2024-04-01 02:15 | NUR ---
PT ASLEEP, AWAKEN FOR VS, LIGHTS KEPT DIM IN ROOM, PT ALERT BUT DROWSY, STATES "HEADACHE IS PRETTY MUCH GONE", PT STATES SMALL AMOUNT OF TINGLING ON BOTH SIDES OF HER FACE PRESENT, FACE APPEARS SYSMATRICAL, PT DENIES NEEDS, BACK TO SLEEP.
--- NOTE | 2024-04-01 04:15 | NUR ---
PT CONTIUES TO SLEEP, OXYGEN SAT 98%, PT LAYING ON RIGHT SIDE.
--- NOTE | 2024-04-01 05:29 | NUR ---
VS COMPLETED BY OCTAVIA STEIN AT THIS TIME, VS REVIEWED, BP 95/48, REPORTED THAT PT HASN'T VOIDED YET TONIGHT, PLAN TO F/U.
[2024-04-01 05:30] LABS: BASOPHILS 0.8 % (0-2); EOSINOPHILS 1.7 % (0-6); LYMPHOCYTES 36.1 % (24-44); MCH 31.2 (27-36); MCHC 34.3 g/dl (30-36); MONOCYTES 7.7 % (0-12); NEUTROPHILS 53.7 % (39-80); PLATELET COUNT 167 K/uL (140-440); RDW 12.3 (10.5-15.0)
[2024-04-01 05:45] LABS: ALBUMIN 3.1 g/dL (3.4-5.0); ALBUMIN/GLOBULIN RATIO 1.11 (1.1-2.4); ANION GAP 11.6 (7-21); BILIRUBIN, TOTAL 0.5 ng/dL (0.2-1.0); BUN/CREATININE RATIO 21.42 (6.0-28.6); CALCIUM 8.6 mg/dL (8.5-10.1); CREATININE, SERUM 0.56 mg/dL (0.55-1.02); POTASSIUM 3.6 mmol/L (3.5-5.1); PROTEIN, TOTAL 5.9 g/dL (6.4-8.2)
--- NOTE | 2024-04-01 06:30 | NUR ---
PT AWAKEN, REQUESTED TO GET UP TO TRY TO VOID, UP TO BR, PT REMOVED, CUSTOMER SUCCESS SPECIALIST NOTED VOID IN TOILET, APPEARS CONCENTRATED AND STRONG SMELLING, PT INSTRUCTED THAT URINE NEEDS TO BE MEASURED, PT ENCOURAGED TO DRINK WATER, PT TOOK 150ML. PT REPORTS SHE FEELS VERY TIRED AND DOESN'T KNOW IF HER FACE FEELS TINGLY AT THIS TIME. PT BACK TO SLEEP.
--- NOTE | 2024-04-01 07:35 | NUR ---
REPORT RECEIVED FROM EMIL KELLY. PT SLEPT ALL NIGHT
--- NOTE | 2024-04-01 08:27 | NUR ---
Board has been updated and call light has been placed within reach
[2024-04-01] MEDS ORDERED: NICOTINE1 EAC2 TD (09:03)
[2024-04-01] MEDS ORDERED: LO-DOSE ASPIRIN81 MG PO (09:03)
--- NOTE | 2024-04-01 09:06 | NUR ---
PT SITTING UP IN BED EATING MEAL. MEDS ADMIN PER EMAR. VIDEO EDITOR IN ROOM TAKING VITALS. ASSESSMENT COMPLETE. DENIES PAIN. STATES THAT THE IT IS NUMB ON L. SIDE OF FACE BUT STATES "I THINK ITS FROM SLEEPING ON IT". PAIN 0/10. DENIES ANY NEEDS, CALL LIGHT WITHIN REACH
--- NOTE | 2024-04-01 09:50 | NUR ---
CONNECTED WITH PT ON WAY OUT. PT STILL TEARY. RAG BOILER PROVIDED SUPPORTIVE PRESENCE, GAVE ANTICIPATORY GUIDANCE, PROVIDED PRAYER. PT EXPRESSED HOPE.
--- NOTE | 2024-04-01 09:52 | NUR ---
UR CLINICAL REVIEW: [facility] [place] [facility] [facility] OBS 03/31/24 @ 1022 ORDER MATCHES REG NO AUTH REQUIRED FOR OBS VISIT. DISCHARE TO HOME TODAY
[2024-04-01] MEDS ORDERED: PHARMACY RENAL DOSE ADJUSTMENT 1 DOSE MISC PO SCH (12:00)
== END 2024-04-01 09:48 | disposition home or self-care (01) ==
LOC: ED 10:21 → MS 10:22
PROVIDERS: Emergency Medicine; ADMIT Family Medicine; ATTEND Family Medicine
DX: R29.810 Facial weakness (principal); J45.909 Unspecified asthma, uncomplicated; F32.A Depression, unspecified; E87.6 Hypokalemia; Z88.2 Allergy status to sulfonamides; Z88.8 Allergy status to other drugs, medicaments and biological substances; Z79.82 Long term (current) use of aspirin; F17.200 Nicotine dependence, unspecified, uncomplicated
CPT/HCPCS: 36415; 70450; 70496; 70498; 70551; 71045; 80053; 80061; 83036; 83735; 84443; 84484; 85025; 85610; 85730; 93005; 93010; 93306; 94762; 96372; A9270; G0378; J1650; Q9967

== ENCOUNTER 2024-09-13 18:15 | Emergency (ER) | payer OTHER ==
[~2024-09-13] VITALS: Ht 175.3 cm; Wt 88.0 kg
[~2024-09-13 18:15] MED LIST changes: +LO-DOSE ASPIRIN81 MG PO; +NICOTINE1 EAC2 TD
[2024-09-13] MEDS ORDERED: DULOXETINE HCL60 MG PO (18:34)
[2024-09-13] MEDS ORDERED: TIZANIDINE HCL2 MG PO (18:34)
[2024-09-13] MEDS ORDERED: diazePAM 10 MG/2 ML SYR IM ONE (19:45)
[2024-09-13] MEDS ORDERED: KETOROLAC TROMETHAMINE 60 MG/2 ML VIAL IM ONE (19:45)
[2024-09-13] MEDS ORDERED: methylPREDNISolone 4 MG HOME.PACK PO ONE (20:15)
[2024-09-13] MEDS ORDERED: HYDROCODONE BIT/ACETAMINOPHEN 5/325 MG 1 TAB HOME.PACK PO ONE (20:15)
[2024-09-13] MEDS ORDERED: CYCLOBENZAPRINE HCL 10 MG HOME.PACK PO ONE (20:15)
[2024-09-13 20:56] VITALS: BP 113/69
== END 2024-09-13 20:55 | disposition home or self-care (01) ==
LOC: ED 18:15
DX: S46.811A Strain of other muscles, fascia and tendons at shoulder and upper arm level, right arm, initial encounter (principal); X50.1XXA Overexertion from prolonged static or awkward postures, initial encounter; J45.909 Unspecified asthma, uncomplicated; F17.200 Nicotine dependence, unspecified, uncomplicated; Z88.2 Allergy status to sulfonamides; Z88.8 Allergy status to other drugs, medicaments and biological substances; Z79.82 Long term (current) use of aspirin; Z79.899 Other long term (current) drug therapy
CPT/HCPCS: 73030; 96372; 99283; A9270; J1885

== ENCOUNTER 2024-09-17 16:23 | Emergency (ER) | payer OTHER ==
[~2024-09-17] VITALS: Ht 175.3 cm; Wt 89.4 kg
[~2024-09-17 16:23] MED LIST changes: +DULOXETINE HCL60 MG PO; +TIZANIDINE HCL2 MG PO
[2024-09-17] MEDS ORDERED: ALBUTEROL/IPRATROPIUM 3 ML NEB INH ONE (16:30)
[2024-09-17] MEDS ORDERED: ALBUTEROL SULFATE 8 GM HOME.PACK INH ONE ×2 (18:45→19:00)
[2024-09-17] MEDS ORDERED: INHALER, ASSIST DEVICES 1 EACH SPACER MISC ONE (18:45)
[2024-09-17 18:53] VITALS: BP 124/76
--- NOTE | 2024-09-18 13:34 | EKG ---
[facility] [address] [facility] [place] [address] Signed Normal sinus rhythm Incomplete right bundle branch block Borderline ECG When compared with ECG of 31-MAR-2024 11:01, Incomplete right bundle branch block is now present Confirmed by Frank Lorenzana MD ([id number]) on 09/18/2024 1:34:15 PM Electronically Signed By: FRANK LORENZANA MD 09/18/24 1334 PATIENT NAME: REDD MERCADO PRAVEEN Electrocardiogram DATE OF : 85 PHYSICIAN: FRANK LORENZANA MD REPORT #: [id number] REPORT IS CONFIDENTIAL AND NOT TO BE RELEASED WITHOUT AUTHORIZATION
== END 2024-09-17 18:53 | disposition home or self-care (01) ==
LOC: ED 16:23
DX: J45.901 Unspecified asthma with (acute) exacerbation (principal); F17.200 Nicotine dependence, unspecified, uncomplicated; Z88.2 Allergy status to sulfonamides; Z88.6 Allergy status to analgesic agent; Z88.8 Allergy status to other drugs, medicaments and biological substances; Z79.899 Other long term (current) drug therapy
CPT/HCPCS: 93005; 93010; 94640; 94664; 99284; 99406

== ENCOUNTER 2024-09-29 08:56 | Emergency (ER) | payer OTHER ==
[~2024-09-29] VITALS: Ht 175.3 cm; Wt 89.4 kg
[2024-09-29] MEDS ORDERED: VITAMIN D21250 MCG PO (09:08)
[2024-09-29] MEDS ORDERED: DULOXETINE HCL60 MG PO (09:20)
[2024-09-29] MEDS ORDERED: VENTOLIN HFA18 GM INH (09:20)
[2024-09-29 10:10] VITALS: BP 106/68
== END 2024-09-29 10:10 | disposition home or self-care (01) ==
LOC: ED 08:56
DX: S40.022A Contusion of left upper arm, initial encounter (principal); X58.XXXA Exposure to other specified factors, initial encounter; J45.909 Unspecified asthma, uncomplicated; F17.200 Nicotine dependence, unspecified, uncomplicated; Z88.2 Allergy status to sulfonamides; Z88.6 Allergy status to analgesic agent; Z88.8 Allergy status to other drugs, medicaments and biological substances; Z79.899 Other long term (current) drug therapy
CPT/HCPCS: 93971; 99283-25

== ENCOUNTER 2024-11-25 08:48 | Emergency (ER) | payer OTHER ==
[~2024-11-25] VITALS: Ht 175.3 cm; Wt 83.9 kg
[~2024-11-25 08:48] MED LIST changes: +VITAMIN D21250 MCG PO
[2024-11-25] MEDS ORDERED: SPIRIVA RESPIMAT4 G1 INH (08:55)
[2024-11-25] MEDS ORDERED: ASPIRIN81 MG PO (08:56)
[2024-11-25] MEDS ORDERED: HYDROCODONE/ACETA 5/325 TAB PO ONE (09:30)
[2024-11-25] MEDS ORDERED: IBUPROFEN 600 MG TAB PO ONE (09:30)
[2024-11-25] MEDS ORDERED: LIDOCAINE HCL 4% 1 EACH PATCH TD ONE (09:30)
[2024-11-25] MEDS ORDERED: CYCLOBENZAPRINE HCL 10 MG TAB PO ONE (09:30)
[2024-11-25] MEDS ORDERED: OXYCODONE HCL 5 MG TAB PO ONE (10:15)
[2024-11-25] MEDS ORDERED: CYCLOBENZAPRINE10 MG PO (10:30)
[2024-11-25] MEDS ORDERED: HYDROCODON-ACE1 EA10 PO (10:30)
[2024-11-25] MEDS ORDERED: NAPROSYN500 MG PO (10:30)
[2024-11-25 10:40] VITALS: BP 107/73
[2024-11-25] MEDS ORDERED: LIDOCAINE PATCH REMOVAL 1 EA TD SCH (21:00)
== END 2024-11-25 10:40 | disposition home or self-care (01) ==
LOC: ED 08:48
DX: M54.41 Lumbago with sciatica, right side (principal); Z88.2 Allergy status to sulfonamides; Z88.5 Allergy status to narcotic agent; Z88.9 Allergy status to unspecified drugs, medicaments and biological substances; J45.909 Unspecified asthma, uncomplicated; F17.200 Nicotine dependence, unspecified, uncomplicated
CPT/HCPCS: 99283; A9270

== ENCOUNTER 2025-05-11 05:57 | Emergency (ER) | payer OTHER ==
[~2025-05-11] VITALS: Ht 175.3 cm; Wt 87.4 kg
[~2025-05-11 05:57] MED LIST changes: +ASPIRIN81 MG PO; +HYDROCODON-ACE1 EA10 PO; +NAPROSYN500 MG PO; +SPIRIVA RESPIMAT4 G1 INH
[2025-05-11] MEDS ORDERED: LACTATED RINGER'S 1,000 ML IV ONE (06:30)
[2025-05-11] MEDS ORDERED: HYDROmorphone HCL 1 MG/ML SYR IM ONE (07:00)
[2025-05-11 07:28] LABS: BASOPHILS 0.3 % (0.1-1.2); EOSINOPHILS 0.2 % (0.7-5.8); LYMPHOCYTES 26.4 % (19.3-51.7); MCH 31.5 PG (25.6-32.2); MCHC 34.8 g/dL (32.2-35.5); MCV 90.5 fL (79.4-94.8); MONOCYTES 8.6 % (4.7-12.5); NEUTROPHILS 64.1 % (34.0-71.1); RBC 4.73 M/uL (3.93-5.22)
[2025-05-11 07:44] LABS: ALT (SGPT) 11.0 U/L (14-59); AST (SGOT) 16.0 U/L (15-37); GLOMERULAR FILTRATION RATE,EST 122.0 mL/min (>60); PROTEIN, TOTAL 7.0 g/dL (6.4-8.2); UREA NITROGEN 10.0 mg/dL (7-18)
[2025-05-11 08:36] LABS: ERYTHROCYTE SEDIMENTATION RATE 10
[2025-05-11 09:10] VITALS: BP 105/65
== END 2025-05-11 09:11 | disposition home or self-care (01) ==
LOC: ED 05:57
PROVIDERS: Internal Medicine
DX: R51.9 Headache, unspecified (principal); F17.200 Nicotine dependence, unspecified, uncomplicated; Z88.2 Allergy status to sulfonamides; Z88.6 Allergy status to analgesic agent; Z88.8 Allergy status to other drugs, medicaments and biological substances; Z79.82 Long term (current) use of aspirin; Z79.899 Other long term (current) drug therapy
CPT/HCPCS: 36415; 70450; 80053; 85025; 85651; 96372; 96374; 99284-25; J1171; J1790; J3030; J7121